=== PATIENT | male | born 1960 | race Caucasian/White ===

== ENCOUNTER → 2021-02-05 15:21 | Outpatient (CLI) | payer OTHER, SELFPAY ==
[2021-02-05 16:15] LABS: BUN Creatinine Ratio 14.3 (6-22); Blood Urea Nitrogen 21 mg/dL (9-20); Calcium 10.1 mg/dL (8.4-10.2); Carbon Dioxide 22 mmol/L (22-32); Chloride 97 mmol/L (98-107); Estimated Glomerular Filt Rate 49.2 mL/min (>60); Glucose 423 mg/dL (70-100); HEMOLYSIS < 15 (0-50); Sodium 134 mmol/L (137-145)
[2021-02-05 16:43] LABS: Prostate Specific Antigen 0.985 ng/mL (0.10-4.00)
== END ==
PROVIDERS: Family Provider Family Medicine; Referring Provider Specialist; Visit Provider Specialist
DX: N40.0 Benign prostatic hyperplasia without lower urinary tract symptoms (principal); Z80.42 Family history of malignant neoplasm of prostate; Z01.812 Encounter for preprocedural laboratory examination
CPT/HCPCS: 36415; 80048; 84153

== ENCOUNTER 2021-02-10 13:01 | Day surgery (SDC) | payer OTHER, SELFPAY ==
--- NOTE | 2021-02-10 | PATH_ITS ---
[facility] Accession Number: [id number] . 01 Material submitted: . PART A: colon - ASCENDING COLON POLYP PART B: colon - DESCENDING COLON POLYP . 01 Clinical history: . DX COLONOSCOPY . 02 Diagnosis: A. Ascending Colon Polyp: Tubular adenoma. . B. Descending Colon Polyp: Tubular adenoma. MRV 02/12/2021 1017 Local . 02 Electronically signed: . Mily Kramer MD, Pathologist NPI- [id number] . 01 Gross description: . Part A: ASCENDING COLON POLYP: Received in formalin is 1 fragment(s) of mena, soft tissue measuring 0.1 x 0.1 x 0.1 cm submitted entirely in 1 cassette(s) Part B: DESCENDING COLON POLYP: Received in formalin is 1 fragment(s) of mena, soft tissue measuring 0.3 x 0.3 x 0.3 cm submitted entirely in 1 cassette(s) /QBJ 02/11/2021 0722 Local . 02 Pathologist provided ICD-10: Z86.010, K63.5 . 02 CPT . 508329, [id number] Performed at: 01 [facility] [address], [place], [place] [id number] MD Irineo Deshpande MD Phone: [phone] Performed at: 02 [facility] [address] [place], [place] [id number] MD Kanwal Patel MD Phone: [phone]
[2021-02-10 14:04] VITALS: BP 155/104; PULSE 89; RESP 16; TEMP 36.3; O2SAT 100; BMI 24.6
[2021-02-10 14:08] LABS: COVID19 -Nasal RAPID Negative (Negative)
[2021-02-10] MEDS: SODIUM CHLORIDE 0.9% 1,000 ML 84 ML IV (14:16)
[2021-02-10] MEDS: INSULIN REGULAR 100 UNIT/ML 3 ML VIAL SUBCUT (14:37)
--- NOTE | 2021-02-10 14:53 | P.HP_ITS ---
History of Present Illness History of Present Illness Date Patient Seen: 02/10/21 Time Patient Seen: 14:53 Chief complaint: DX COLONOSCOPY Narrative: Personal history of colon polyps. Patient History Medical History Benign essential hypertension BPH loc w/o ur obs/LUTS Cholelithiases CKD (chronic kidney disease) Diabetes Erectile dysfunction associated with type 2 diabetes mellitus Family history of malignant neoplasm Family history of prostate cancer in father Myopia Ocular hypertension HAVEN (obstructive sleep apnea) Presbyopia Regular astigmatism Family & Social History Social History: household members spouse Tobacco & Substance use: Smoking Status Never smoker alcohol intake current alcohol intake frequency 0-2 drinks per day Substance Use Type does not use Meds Home Medications and Allergies Home Medications Medication Instructions Recorded Confirmed Type amlodipine 5 mg tablet (Norvasc) 5 mg PO QDAY #0 07/21/16 02/10/21 History aspirin 81 mg tablet,delayed 81 mg PO BID #0 07/21/16 02/10/21 History release atorvastatin 20 mg tablet (Lipitor) 20 mg PO HS #0 07/21/16 02/10/21 History losartan 100 mg tablet (Cozaar) 100 mg PO DAILY #0 tab 01/01/21 02/10/21 History Allergies Allergy/AdvReac Type Severity Reaction Status Date / Time No Known Allergies Allergy Uncoded 01/01/21 09:19 Review of Systems Review of Systems ROS: Yes All systems reviewed with the patient and are negative except as otherwise documented Exam Vital Signs (past 8 hours): - 02/10/21 14:04 Temperature 97.4 F L Pulse Rate 89 Respiratory Rate 16 Blood Pressure 155/104 H Pulse Oximetry 100 Oxygen Delivery Method Room Air Const General: cooperative and comfortable Orientation: alert [facility] Head: normocephalic Ears: external ears normal Nose: external nose normal Face and sinus: normal facial exam Mouth: oral mucosae normal Eyes General: appearance normal, both eyes and all related structures Neck Neck: normal visual inspection Chest Chest: normal inspection of the chest Resp Effort & Inspection: normal respiratory effort Auscultation: clear to auscultation bilaterally Cardio Rate: regular rate Rhythm: regular rhythm Heart Sounds: no murmurs GI Inspection: normal to inspection Palpation: soft and No tender Auscultation: normal bowel sounds Skin General: no rashes or lesions noted and No jaundice Neuro General: patient alert and moves all extremities Cognition: normal cognition Speech: speech normal Extrem General: no pedal edema Psych Appearance: grossly normal Objective Labs Labs: Laboratory Results - last 24 hr 02/10/21 13:09 SARS-CoV-2 (PCR) Negative Assessment & Plan Assessment & Plan narrative: Personal history of colon polyps. Colonoscopy is planned for today. Time Spent With Patient Critical Care time: I spent a total of [] minutes of critical care time on this patient's care today; this time is exclusive of procedural time.
--- NOTE | 2021-02-10 14:54 | PM.PREOP ---
Pre-operative Note COVID-19 COVID-19 status: Negative Result date/Date tested (Pos, Neg/Pending): 02/10/21 Interval Note History & Physical reviewed/Exam performed by Physician: Yes Changes to H&P: No H&P completed within 30 days and has changed as indicated here:: Today ASA Class (for procedural sedation): II
--- NOTE | 2021-02-10 15:21 | PM.OP.COLON ---
Operative Date/Time/Diagnoses Date of procedure: 02/10/21 Time of procedure: 15:21 Pre-op diagnosis: Personal history of colon polyps Post-op diagnosis: same Procedure & Clinicians Study performed: Colonoscopy with cold forceps polypectomy and hot snare polypectomy Same procedure as scheduled: Yes Indications: Personal history of colon polyps Surgeon: Raciel Ashraf Procedure Notes SCOAP/Timeout: Done Procedure in detail: After the risks and benefits were explained, written and verbal informed consent was obtained. The patient was brought into the procedure room and placed into the left lateral decubitus position. No sedation was applied. Patient requested a nonsedated exam. Digital rectal examination was accomplished. The scope was introduced into the patient and advanced under direct visualization to the cecum as identified by the appendiceal orifice and ileocecal valve. The scope was slowly withdrawn to carefully examine the mucosa for any defects or lesions. Comprehensive imaging was accomplished throughout the rectum including the dentate line. The colon was decompressed, the scope was then removed from the patient who tolerated the procedure well. Bowel prep adequate Pediatric colonoscope Scope withdrawal time: 11 minutes Sedation minutes: 18 Complications: none Impression: Patient had grade 2 internal nonbleeding nonthrombosed hemorrhoids. In the ascending colon there was a diminutive 4 mm polyp removed with cold forceps. In the descending colon there was an approximately 6 mm sessile polyp removed with hot snare. A no additional pathology was appreciated throughout. Endoscopic diagnosis 1. Grade 2 hemorrhoids 2. Colon polyps Post-procedure Recommendations: Colonoscopy in 5 years Plan for aftercare: 1. Await histopathology 2. Repeat colonoscopy 5 years. Disposition: PACU
[2021-02-10 15:22] VITALS: BP 154/90; PULSE 77; RESP 14; TEMP 36.1; O2SAT 99
[2021-02-10 15:25] VITALS: BP 157/91; PULSE 80; RESP 13; O2SAT 99
[2021-02-10 15:30] VITALS: BP 161/94; PULSE 75; RESP 16; O2SAT 99
[2021-02-10 15:35] VITALS: BP 140/97; PULSE 75; RESP 11; O2SAT 99
[2021-02-10 15:40] VITALS: BP 147/91; PULSE 80; RESP 17; TEMP 36.4; O2SAT 99
== END 2021-02-10 15:55 | disposition home or self-care (01) ==
PROVIDERS: Family Provider Family Medicine; Referring Provider Internal Medicine Gastroenterology; Visit Provider Internal Medicine Gastroenterology
PROC: 0DJD8ZZ Inspection of Lower Intestinal Tract, Via Natural or Artificial Opening Endoscopic (ICD-10-PCS; CPT 45378; principal; 2021-02-10 15:00)
DX: Z12.11 Encounter for screening for malignant neoplasm of colon (principal); Z86.010 Personal history of colon polyps; K64.1 Second degree hemorrhoids; Z20.822 Contact with and (suspected) exposure to COVID-19; D12.2 Benign neoplasm of ascending colon; D12.4 Benign neoplasm of descending colon
CPT/HCPCS: 45385; 45380; 82962; 87635

== ENCOUNTER → 2021-02-11 09:31 | Outpatient (CLI) | payer OTHER, SELFPAY ==
--- NOTE | 2021-02-11 09:32 | DI.NM.S_ITS ---
PROCEDURE: NM RENAL FUNCTION W LASIX RADIOPHARMACEUTICAL: 10 mCi Tc-99m MAG3 IV and 40 mg furosemide IV. INDICATIONS: CKD TECHNIQUE: The patient was hydrated orally before the examination was begun. After intravenous administration of Tc-99m MAG3, posterior abdominal radionuclide angiogram and sequential (1 minute each frame) renal images were obtained. A time-activity curve for each kidney was generated and analyzed. To evaluate for obstruction, the patient was given 40 mg furosemide via slow intravenous injection after the start of the examination. Sequential images were obtained for up to an additional 20 minutes. COMPARISON: [facility], MR, ABDOMEN WITHOUT CONTRAST, 06/15/2016, 12:31. [facility], [place], US RETROPERITONEAL, 10/15/2020, 12:19. [facility], [place], CT KIDNEY W / WO CONTRAST, 11/05/2020, 13:55. FINDINGS: Perfusion: There is normal vascular flow to both kidneys. Morphology: Both kidneys are normal in size and shape. The right renal collecting system is mildly dilated. No dilated left renal collecting system. The ureters and bladder fill with tracer, and appear normal. Function: Both kidneys demonstrate normal cortical tracer uptake and excretion. The right kidney contributes 48.2% of total renal function. The left kidney contributes 51.8% of total renal function. Lasix stimulation: After diuretic administration, there is prompt clearance of tracer activity from the renal collecting of the left kidney. There is delayed clearance of tracer activity from the right renal collecting system. The half-time of emptying of tracer activity from the right pelvicaliceal system is >20 minutes. The half-time of emptying from the left pelvicaliceal system is 5 minutes. Normal emptying half-times are less than 10 minutes; borderline ranges are from 10 to 20 minutes. IMPRESSION: 1. Mildly dilated right renal pelvis with normal caliber of right ureter. There is prolonged delayed clearance of activity from the right kidney with prolonged T1/2, consistent with right UPJ obstruction. 2. Normal left renal function. 3. The right kidney contributes 48.2% of total renal function; the left kidney contributes 51.8% of total renal function. Dictated by: Gogo Bronson M.D. on 02/11/2021 at 13:46 Approved by: Gogo Bronson M.D. on 02/11/2021 at 13:59
== END ==
PROVIDERS: Family Provider Family Medicine; PCP Family Medicine; Referring Provider Specialist; Visit Provider Specialist
DX: N18.9 Chronic kidney disease, unspecified (principal)
CPT/HCPCS: 78708; A9562

== ENCOUNTER → 2021-03-25 10:58 | Outpatient (CLI) | payer OTHER, SELFPAY ==
[2021-03-25 12:07] LABS: COVID19 -Nasal RAPID Negative (Negative)
== END ==
PROVIDERS: Family Provider Family Medicine; PCP Family Medicine; Visit Provider Specialist
DX: N13.5 Crossing vessel and stricture of ureter without hydronephrosis (principal); N18.9 Chronic kidney disease, unspecified; Z20.822 Contact with and (suspected) exposure to COVID-19; Z80.42 Family history of malignant neoplasm of prostate
CPT/HCPCS: 81002; 87635; 99215

== ENCOUNTER 2021-03-27 06:31 | Day surgery (SDC) | payer OTHER, SELFPAY ==
[2021-03-26 08:20] VITALS: BMI 25.4
[2021-03-27] VITALS (18 sets, daily range): BP systolic 118–150; BP diastolic 70–94; PULSE 58–104; RESP 15–20; TEMP 36.1–37.3; O2SAT 89–98; BMI 25.4
--- NOTE | 2021-03-27 | DI.RAD.S_ITS ---
PROCEDURE: XR ABDOMEN 1V INDICATIONS: RIGHT RETROGRADE TECHNIQUE: 5 intraoperative fluoroscopic of the abdomen acquired. COMPARISON: None. FINDINGS: Intraoperative fluoroscopic images of abdomen shows moderately distended right renal collecting system. No gross intraluminal filling defect is identified. There is subsequent placement of right-sided ureteral stent under fluoro guidance. IMPRESSION: Moderate right-sided hydronephrosis with subsequent right sided ureteral stent placement. Dictated by: Oscar Cohen M.D. on 03/27/2021 at 9:53 Approved by: Oscar Cohen M.D. on 03/27/2021 at 9:54
--- NOTE | 2021-03-27 07:17 | SUR.OPER ---
Lithotomy on padded OR bed, head on pillow, arms secured on padded arm boards at <90 degrees abduction. Legs secured in padded yellow fins stirrups.
[2021-03-27] MEDS: LACTATED RINGERS 1,000 ML 42 ML IV (07:34)
--- NOTE | 2021-03-27 07:40 | PM.PREOP ---
Pre-operative Note Interval Note History & Physical reviewed/Exam performed by Physician: Yes Changes to H&P: No
[2021-03-27] MEDS: CEFAZOLIN 2 GM/20 ML SYRINGE IV (08:02)
[2021-03-27] MEDS: IOPAMIDOL 15 ML VIAL INJ (08:11)
[2021-03-27] MEDS: BELLADONNA/OPIUM SUPPOSITORIES 1 EACH PR ×2 (08:26→12:25)
--- NOTE | 2021-03-27 08:43 | PM.OP.1 ---
Operative Date/Time/Diagnoses Date of procedure: 03/27/21 Time of procedure: 08:43 Pre-op diagnosis: Right ureteropelvic junction obstruction Post-op diagnosis: same Procedure & Clinicians Procedure: 1. Cystoscopy/right retrograde pyelogram. 2. Cystoscopy/dilation right ureteropelvic junction obstruction (18 Spanish balloon dilating catheter). 3. Cystoscopy/placement right ureteral stent (8 Spanish by 22-32 cm multi-length). Same procedure as scheduled: Yes Indications: 1. Right ureteropelvic junction obstruction. 2. CKD. Surgeon: Steve Swan Click Yes if Unassisted: Yes Anesthesia Type: General Operative Notes Findings: 1. Urethra-normal caliber without annular stricture or lesion. 2. External sphincter coapted with normal overlying urothelium. 3. Mzfxkqrd-1-5.5 cm length with mild lateral lobe hyperplasia. 4. Bladder-trace trabeculation. Normal ureteral orifices bilaterally. No stone, tumor, foreign body visualized. 5. Right collecting system-moderate to severe right hydronephrosis tapering in a teardrop fashion inferiorly and transitioning to a normal caliber ureter. Closure Type: not applicable Specimen(s): none sent Applied: other (Eight Spanish by 22-32 cm multi-length stent) Estimated Blood Loss (mL): 0 Blood products transfused: none Procedure in detail: The patient was positioned supine and was administered general anesthesia. He was then repositioned semi lithotomy and the lower abdomen, genitalia, and groin were then prepped and draped in sterile fashion. The 22 Spanish panendoscope was then passed lower urinary tract with the findings as described above. A 4 Spanish whistle-tip catheter was then advanced through the working channel of the scope and advanced of the right collecting system under direct and fluoroscopic guidance. Retrograde pyelography was then performed with the findings as described above. Several intraoperative images were saved. The whistle-tip catheter was then removed and a 0.35 hybrid guidewire was advanced in the right collecting system under direct and fluoroscopic guidance. Over this an 18 Spanish by 6 cm balloon dilating catheter was advanced proximally under direct and fluoroscopic guidance. The balloon was positioned across the right ureteropelvic junction and was then inflated to 18 atmospheres and held in position for 5 minutes. The balloon was then deflated and the balloon dilating catheter was backloaded off the hybrid guidewire. Next, an 8 Spanish by 22-32 cm multi-length stent was selected. This was advanced over the hybrid guidewire under direct and fluoroscopic guidance and positioned appropriately in the right collecting system. NO RETRIEVAL LINE WAS LEFT ATTACHED. The bladder was then drained completely and all instrumentation was then removed. The patient was then repositioned supine, was awakened, and was transferred [place] a [place] for transport to PACU in stable condition. Complications: none Post-operative Condition: stable Disposition: PACU Plan for aftercare: Discharge home.
--- NOTE | 2021-03-27 09:24 | SUR.PHASEII ---
Up to BR to void, steady when up.
[2021-03-27] MEDS: ONDANSETRON 4 MG/2 ML INJ IV (09:37)
[2021-03-27] MEDS: OXYCODONE/ACETAMINOPHEN 5/325 TABLET 1 TAB PO ×2 (09:51→11:31)
[2021-03-27] MEDS: fentaNYL 100 MCG/2 ML INJ IV (10:19)
--- NOTE | 2021-03-27 11:41 | SUR.PHASEII ---
Pt c/o nausea, medicated with ondansetron, nausea resoleved, then 7/10 pain, placed on monitor and medicated with fentanyl, pt slept awoke, was going to get [id number], then started to dry heave and Dr. Segura notified. Scop patch ordered.
[2021-03-27] MEDS: SCOPOLAMINE 1 PATCH TOP (11:47)
[2021-03-27] MEDS: HYDROMORPHONE 2 MG INJ IV (11:56)
--- NOTE | 2021-03-27 12:11 | SUR.PHASEII ---
Dr Swan called about pain still after Dilaudid given, B&)
--- NOTE | 2021-03-27 12:12 | SUR.PHASEII ---
Dilaudid given, pain still high, Dr Swan called about pain B& O ordered.
--- NOTE | 2021-03-27 14:05 | SUR.PHASEII ---
B&O given, pt slept, got up voided in bathroom again nauseated, 9/10 pain, not wanting to go home, Dr. Swan ordered oconnell to be placed and 1gram IV Tylenol, plan expalined to pt, pt stated he did not want oconnell pain down to 4/10. Pt stated he would rather go home. Dr. Swan called, informed of pt request, he was ok with pt going home, pt left unit in stable condition.
== END 2021-03-27 13:30 | disposition home or self-care (01) ==
PROVIDERS: Family Provider Family Medicine; PCP Family Medicine; Referring Provider Specialist; Visit Provider Specialist
PROC: (CPT 52345; principal; 2021-03-27 07:45)
DX: N13.5 Crossing vessel and stricture of ureter without hydronephrosis (principal); N18.9 Chronic kidney disease, unspecified; N40.1 Benign prostatic hyperplasia with lower urinary tract symptoms; N13.8 Other obstructive and reflux uropathy; N52.1 Erectile dysfunction due to diseases classified elsewhere; E11.69 Type 2 diabetes mellitus with other specified complication; Z79.84 Long term (current) use of oral hypoglycemic drugs
CPT/HCPCS: 52345; 52332; 74018; 76000; 82962; J0690; J1170; J2250; J2405; J2704; J3010

== ENCOUNTER → 2021-05-27 15:55 | Outpatient (CLI) | payer OTHER, SELFPAY ==
[2021-05-27 16:44] LABS: BUN Creatinine Ratio 13.4 (6-22); Blood Urea Nitrogen 19 mg/dL (9-20); Calcium 10.7 mg/dL (8.4-10.2); Carbon Dioxide 22 mmol/L (22-32); Chloride 101 mmol/L (98-107); Estimated Glomerular Filt Rate 51.2 mL/min (>60); Glucose 313 mg/dL (70-100); HEMOLYSIS < 15 (0-50); Sodium 135 mmol/L (137-145)
[2021-05-27 16:46] LABS: Potassium 5.4 mmol/L (3.4-5.1)
== END ==
PROVIDERS: Family Provider Family Medicine; PCP Family Medicine; Referring Provider Specialist; Visit Provider Specialist
DX: N40.0 Benign prostatic hyperplasia without lower urinary tract symptoms (principal)
CPT/HCPCS: 36415; 80048

== ENCOUNTER → 2021-06-22 13:37 | Outpatient (CLI) | payer OTHER, SELFPAY ==
--- NOTE | 2021-06-22 | DI.NM.S_ITS ---
PROCEDURE: MS RENAL FUNCTION W LASIX RADIOPHARMACEUTICAL: 10 mCi Tc-99m MAG3 IV and 40 mg furosemide IV. INDICATIONS: Chronic kidney disease, unspecified TECHNIQUE: The patient was hydrated orally before the examination was begun. After intravenous administration of Tc-99m MAG3, posterior abdominal radionuclide angiogram and sequential (1 minute each frame) renal images were obtained. A time-activity curve for each kidney was generated and analyzed. To evaluate for obstruction, the patient was given 40 mg furosemide via slow intravenous injection after the start of the examination. Sequential images were obtained for up to an additional 20 minutes. COMPARISON: [place], [place], MS RENAL FUNCTION W LASIX, 02/11/2021, 10:12. FINDINGS: Perfusion: There is normal vascular flow to both kidneys. Morphology: Both kidneys are normal in size and shape. No dilated collecting systems are seen. The ureters and bladder fill with tracer, and appear normal. Function: Delayed radiotracer uptake within the bilateral kidneys is present, with a time to peak of 6 minutes on the left and 18.5 minutes on the right. The right kidney contributes 52 % of total renal function. The left kidney contributes 48% of total renal function. Lasix stimulation: After diuretic administration, there is delayed clearance of tracer activity from the renal collecting systems in both kidneys. The half-time of emptying of tracer activity from the right pelvicaliceal system is 21 minutes. The half-time of emptying from the left pelvicaliceal system is 26 minutes. Normal emptying half-times are less than 10 minutes; borderline ranges are from 10 to 20 minutes. IMPRESSION: 1. Diminished renal perfusion bilaterally, right greater than left. 2. Delayed bilateral renal emptying. Dictated by: Prakash Saavedra M.D. on 06/22/2021 at 15:49 Approved by: Prakash Saavedra M.D. on 06/22/2021 at 15:51
== END ==
PROVIDERS: Family Provider Family Medicine; PCP Family Medicine; Referring Provider Specialist; Visit Provider Specialist
DX: N18.9 Chronic kidney disease, unspecified (principal); N13.5 Crossing vessel and stricture of ureter without hydronephrosis; N40.0 Benign prostatic hyperplasia without lower urinary tract symptoms
CPT/HCPCS: 78708; A9562

== ENCOUNTER → 2021-09-21 13:39 | Outpatient (CLI) | payer OTHER, SELFPAY ==
[2021-09-21 15:27] LABS: Prostate Specific Antigen 0.657 ng/mL (0.10-4.00)
== END ==
PROVIDERS: Family Provider Family Medicine; PCP Family Medicine; Referring Provider Specialist; Visit Provider Specialist
DX: R97.20 Elevated prostate specific antigen [PSA] (principal)
CPT/HCPCS: 36415; 84153

== ENCOUNTER → 2021-09-23 15:52 | Outpatient (CLI) | payer OTHER, SELFPAY | PROVIDERS: Family Provider Family Medicine; PCP Family Medicine; Visit Provider Specialist | DX: R30.0 Dysuria (principal); N13.5 Crossing vessel and stricture of ureter without hydronephrosis; N18.9 Chronic kidney disease, unspecified; N40.0 Benign prostatic hyperplasia without lower urinary tract symptoms; E11.69 Type 2 diabetes mellitus with other specified complication; N52.1 Erectile dysfunction due to diseases classified elsewhere; Z80.42 Family history of malignant neoplasm of prostate | CPT/HCPCS: 81002; 87086; 99215 ==

== ENCOUNTER 2025-02-01 19:45 | Inpatient (IN) | payer OTHER, SELFPAY ==
[2025-02-01] VITALS (10 sets, daily range): BP systolic 94–112; BP diastolic 58–70; PULSE 106–117; RESP 15–21; TEMP 36.9; O2SAT 96–100; BMI 23.6
--- NOTE | 2025-02-01 19:51 | EKG_ITS ---
[address] [address] Test Date: 2025-02-01 Pat Name: Girma Pena Department: Room: Gender: Male [employer] Delivery Driver: GEMMA : [id number] Requested By: Order Number: [id number] Reading MD: Edwardo Viramontes MD Measurements Intervals [place] Rate: 114 P: 46 WY: 128 QRS: 0 QRSD: 82 T: 76 QT: 332 QTc: 457 Interpretive Statements Sinus tachycardia Nonspecific T wave abnormality Electronically Signed On 02-02-2025 7:25:45 PDT by Edwardo Viramontes MD
--- NOTE | 2025-02-01 20:15 | DI.RAD.S_ITS ---
PROCEDURE: XR CHEST 1V INDICATIONS: suspected sepsis TECHNIQUE: One view of the chest was acquired. COMPARISON: None. FINDINGS: Surgical changes and devices: None. Lungs and pleura: Lungs are clear. No pleural effusions or pneumothorax. Mediastinum: Mediastinal contours appear normal. Heart size is normal. Bones and chest wall: No suspicious bony lesions. Overlying soft tissues appear unremarkable. IMPRESSION: No acute cardiopulmonary abnormality is seen. Dictated by: Ash Preston M.D. on 02/01/2025 at 22:00 Approved by: Ash Preston M.D. on 02/01/2025 at 22:00
[2025-02-01 20:25] LABS: INR 1.1 (0.9-1.3); Prothrombin Time 12.8 SECONDS (9.4-12.5)
[2025-02-01 20:28] LABS: PTT Partial Thromboplastin Tim 22 SECONDS (25.1-36.5)
[2025-02-01 20:31] LABS: Alanine Aminotransferase 262 IU/L (<50); Albumin 4.2 g/dL (3.5-5.0); Albumin Globulin Ratio 1.8 (1.0-2.8); Alkaline Phosphatase 80 U/L (38-126); Blood Urea Nitrogen 77 mg/dL (9-20); Calcium 9.1 mg/dL (8.4-10.2); Carbon Dioxide 21 mmol/L (22-32); Chloride 90 mmol/L (98-107); Estimated Glomerular Filt Rate 34 mL/min (>60); Globulin 2.4 g/dL (1.7-4.1); Glucose 299 mg/dL (70-99); HEMOLYSIS 17 (0-50); Lipase 149 U/L (23-300); Potassium 4.2 mmol/L (3.4-5.1); Sodium 130 mmol/L (137-145); Total Protein 6.6 g/dL (6.3-8.2)
[2025-02-01 20:34] LABS: Lactate (Lactic Acid) 8.9 mmol/L (0.7-2.1)
--- NOTE | 2025-02-01 20:34 | ED.WEAKNESS ---
HPI - Weakness <Anne Flannery, - Last Filed: 02/05/25 10:38> General Chief complaint: Weakness Stated complaint: gen weakness Time Seen by Provider: 02/01/25 20:30 Source: patient and EMS Mode of arrival: EMS History of Present Illness HPI Narrative: 64-year-old male history of diabetes on insulin, CKD, hypertension who presents with complaint of lightheadedness near-syncope when he is standing. Patient states he had a dental extraction and graft yesterday with a dental surgeon he notes he did have a procedural sedation with IV medication he does not know if he was intubated but does not recall the procedure. Was started on amoxicillin today as part of the plan he states no fevers that he appreciates he has been maybe slightly warm he denies any chills. He states no increasing pain swelling or discharge from the site. He states no chest pain he has noted a little bit of shortness of breath particularly when he exerts himself. He notes he gets really lightheaded and feels like he is going to pass out when he walks or stands. He did not have some nausea and vomiting earlier this afternoon. He states he has a little bit of mild abdominal discomfort but none persistent he denies any back or flank pain. He denies any diarrhea or constipation. He denies any dysuria urgency or frequency. Denies any rash or skin changes. Patient states he is on 2000 mg of metformin, Lantus 14 units daily, losartan 100 mg daily, amlodipine 2.5 mg daily. He denies any anticoagulation. Take has a history of a right ureteral stent that has since been removed for an obstruction, he has had right eye cataract surgery. He denies any drug allergies. No tobacco, has 4 alcoholic drinks daily no recreational drugs. Primary care physician is Dr. Rand through the [place]. Related Data Home Medications ?Medication ?Instructions ?Recorded ?Confirmed aspirin 81 mg tablet,delayed 81 mg PO BID ##0 07/21/16 02/02/25 release atorvastatin 20 mg tablet (Lipitor) 20 mg PO HS ##0 07/21/16 02/02/25 losartan 100 mg tablet (Cozaar) 100 mg PO DAILY #0 tabs 01/01/21 02/02/25 meloxicam 15 mg tablet 15 mg PO .prn 09/23/21 02/02/25 metformin 1,000 mg tablet 2,000 mg PO DAILY 09/23/21 02/02/25 insulin glargine 100 unit/mL (3 14 unit SUBCUT DAILY 02/02/25 02/02/25 mL) subcutaneous pen (Lantus Solostar U-100 Insulin) Previous Rx's ?Medication ?Instructions ?Recorded sildenafil 25 mg tablet 25 mg PO DAILY PRN sexual activity 10/26/21 #30 tabs Allergies Allergy/AdvReac Type Severity Reaction Status Date / Time No Known Drug Allergies Allergy Verified 02/01/25 19:51 Review of Systems <Anne Flannery DO - Last Filed: 02/05/25 10:38> Review of Systems ROS Unobtainable: All systems reviewed & are unremarkable except as noted in HPI and below Patient History <Anne Flannery DO - Last Filed: 02/05/25 10:38> Medical History Benign essential hypertension BPH loc w/o ur obs/LUTS Cholelithiases Cirrhosis, alcoholic CKD (chronic kidney disease) Diabetes Erectile dysfunction associated with type 2 diabetes mellitus Esophageal varices Family history of malignant neoplasm Family history of prostate cancer in father Myopia Obstruction of right ureteropelvic junction (UPJ) Ocular hypertension HAVEN (obstructive sleep apnea) Presbyopia Regular astigmatism Surgical History Hx of colonoscopy (02/10/21) Family History Mother Diabetes mellitus Father Diabetes mellitus Brother Diabetes mellitus Pancreatic cancer Sister Diabetes mellitus Pancreatic cancer Social History marital status: household members: spouse leisure activities: exercise Smoking Status: Never smoker alcohol intake: current caffeine: Yes Smoking Status: Never smoker alcohol intake frequency: 0-2 drinks per day Alcohol type: wine Exam <Anne Flannery DO - Last Filed: 02/05/25 10:38> Narrative Exam Narrative: GEN: well nourished, well appearing male, alert and oriented x 3, patient appears to be in mild distress. HEENT: Atraumatic, pupils are equal round reactive to light, extraocular movements are intact, nares are clear, there is no conjunctival pallor. Throat is clear without any exudates, erythema, tonsillar enlargement or uvular deviation HEART: Tachycardic but Regular rate and rhythm without murmur, clicks, rubs. Pulses are equal in upper and lower extremities, no JVD. No edema bilateral upper lower extremities. LUNGS:Lungs clear to auscultation, no wheezes, rales, crackles, chest moves symmetrically, no tachypnea accessory muscle use speaks in full sentences. ABD:bowel sounds normal, soft, non-tender, no guarding, rebound, rigidity, no masses noted, no hepatosplenomegaly :No CVA tenderness MSCL: Non-tender, no muscle atrophy, muscles strength 5/5 upper and lower extremities, full range of motion. NEURO:CN 2-12 intact, sensation normal SKIN: No rash, erythema, no petechiae Initial Vital Signs Initial Vital Signs: Vital Signs Temperature 98.4 F 02/01/25 19:51 Pulse Rate 117 H 02/01/25 19:51 Respiratory Rate 18 02/01/25 19:51 Blood Pressure 103/69 02/01/25 19:51 Pulse Oximetry 96 02/01/25 19:51 Oxygen Delivery Method Room Air 02/01/25 19:51 <Ray Loomis MD - Last Filed: 02/02/25 03:27> Initial Vital Signs Initial Vital Signs: Vital Signs Temperature 98.4 F 02/01/25 19:51 Pulse Rate 117 H 02/01/25 19:51 Respiratory Rate 18 02/01/25 19:51 Blood Pressure 103/69 02/01/25 19:51 Pulse Oximetry 96 02/01/25 19:51 Oxygen Delivery Method Room Air 02/01/25 19:51 Course <Anne Flannery DO - Last Filed: 02/05/25 10:38> Orders Ordered: Discontinued Medications Aspirin (Aspirin Ec 81 Mg Tablet) 81 mg PO BID [facility] Atorvastatin Calcium (Atorvastatin 20 Mg Tablet) 20 mg PO BEDTIME [facility] Last Admin: 02/03/25 20:50 Dose: Not Given Documented By: Admin: 02/02/25 21:08 Dose: Not Given Documented By: Admin: 02/02/25 05:53 Dose: Not Given Documented By: Enoxaparin Sodium (Enoxaparin 40 Mg/0.4 Ml Syringe) 40 mg SUBCUT DAILY [facility] Sodium Chloride (Normal Saline 0.9%) 1,000 mls @ 1,000 mls/hr IV BOLUS ONE Stop: 02/01/25 21:14 Last Admin: 02/01/25 21:28 Dose: Not Given Documented By: ESTRELLITA Vancomycin HCl 1,750 mg/ (Sodium Chloride) 500 mls @ 250 mls/hr IV NOW ONE Stop: 02/01/25 20:48 Last Admin: 02/01/25 21:28 Dose: Not Given Documented By: ESTRELLITA Ceftriaxone Sodium 2,000 mg/ (Sodium Chloride) 100 mls @ 200 mls/hr IV NOW ONE Stop: 02/01/25 20:48 Last Infusion: 02/01/25 21:57 Dose: Infused Documented By: Admin: 02/01/25 20:58 Dose: 200 mls/hr Documented By: ESTRELLITA Sodium Chloride (Normal Saline 0.9%) 2,109.21 mls @ 703.07 mls/hr 30 ml/kg infuse over 3 hr (2109.21 ml) IV NOW ONE Stop: 02/01/25 23:46 Last Infusion: 02/01/25 23:55 Dose: Infused Documented By: Admin: 02/01/25 20:57 Dose: 703.07 mls/hr Documented By: ESTRELLITA Vancomycin HCl 1,000 mg/ (Sodium Chloride) 100 mls @ 100 mls/hr IV NOW ONE Stop: 02/01/25 21:21 Last Admin: 02/01/25 22:11 Dose: Not Given Documented By: ESTRELLITA Vancomycin HCl 750 mg/ Sodium (Chloride) 100 mls @ 100 mls/hr IV NOW ONE Stop: 02/01/25 21:21 Last Admin: 02/01/25 22:11 Dose: Not Given Documented By: ESTRELLITA Vancomycin HCl/Dextrose (Vancomycin) 1,750 mg in 350 mls @ 200 mls/hr IV NOW ONE Stop: 02/01/25 23:44 Last Infusion: 02/01/25 23:56 Dose: Infused Documented By: Admin: 02/01/25 21:57 Dose: 200 mls/hr Documented By: ESTRELLITA Piperacillin Sod/Tazobactam (Sod 4.5 gm/ Sodium Chloride) 100 mls @ 200 mls/hr IV NOW ONE Stop: 02/02/25 00:35 Last Infusion: 02/02/25 02:08 Dose: Infused Documented By: Admin: 02/02/25 01:38 Dose: 200 mls/hr Documented By: PETRONA Lactated Ringer's (Lactated Ringers) 1,000 mls @ 1,000 mls/hr IV BOLUS ONE Stop: 02/02/25 01:37 Last Infusion: 02/02/25 02:38 Dose: Infused Documented By: Admin: 02/02/25 01:35 Dose: 1,000 mls/hr Documented By: PETRONA Sodium Chloride (Normal Saline 0.9%) 1,000 mls @ 100 mls/hr IV CONT [facility] Last Infusion: 02/04/25 11:25 Dose: Infused Documented By: Admin: 02/03/25 21:42 Dose: 100 mls/hr Documented By: Infusion: 02/03/25 21:04 Dose: Infused Documented By: Admin: 02/03/25 11:04 Dose: 100 mls/hr Documented By: Infusion: 02/03/25 08:15 Dose: Infused Documented By: Admin: 02/02/25 22:15 Dose: 100 mls/hr Documented By: Infusion: 02/02/25 22:14 Dose: Infused Documented By: Admin: 02/02/25 12:14 Dose: 100 mls/hr Documented By: Infusion: 02/02/25 12:14 Dose: Infused Documented By: Admin: 02/02/25 02:39 Dose: 100 mls/hr Documented By: PETRONA Piperacillin Sod/Tazobactam (Sod 3.375 gm/ Sodium Chloride) 100 mls @ 25 mls/hr IV Q8H [facility] Last Admin: 02/04/25 11:24 Dose: Not Given Documented By: Infusion: 02/04/25 03:38 Dose: Infused Documented By: Admin: 02/03/25 23:38 Dose: 25 mls/hr Documented By: Infusion: 02/03/25 20:23 Dose: Infused Documented By: Admin: 02/03/25 16:23 Dose: 25 mls/hr Documented By: Infusion: 02/03/25 12:41 Dose: Infused Documented By: Admin: 02/03/25 08:41 Dose: 25 mls/hr Documented By: Infusion: 02/03/25 04:08 Dose: Infused Documented By: Admin: 02/03/25 00:08 Dose: 25 mls/hr Documented By: Infusion: 02/02/25 20:20 Dose: Infused Documented By: Admin: 02/02/25 16:20 Dose: 25 mls/hr Documented By: Infusion: 02/02/25 12:17 Dose: Infused Documented By: Admin: 02/02/25 07:55 Dose: 25 mls/hr Documented By: CATALINO Vancomycin HCl (Vancomycin) 1,000 mg in 200 mls @ 150 mls/hr IV Q24H [facility] Last Infusion: 02/02/25 22:39 Dose: Infused Documented By: Admin: 02/02/25 21:19 Dose: 150 mls/hr Documented By: KISHORE Vancomycin HCl/Dextrose (Vancomycin) 1,500 mg in 300 mls @ 200 mls/hr IV Q24H [facility] Last Admin: 02/03/25 14:13 Dose: Not Given Documented By: ROB Vancomycin HCl/Dextrose (Vancomycin) 1,500 mg in 300 mls @ 200 mls/hr IV Q24H [facility] Last Infusion: 02/03/25 14:13 Dose: Infused Documented By: Admin: 02/03/25 12:26 Dose: 200 mls/hr Documented By: ROB Insulin Glargine (Insulin Glargine 100 Unit/Ml 3ml Pen) 10 unit SUBCUT DAILY [facility] Insulin Glargine (Insulin Glargine 100 Unit/Ml 3ml Pen) 14 unit SUBCUT DAILY [facility] Last Admin: 02/03/25 08:40 Dose: 14 unit Documented By: ROB Co-signed By: CRISTI Admin: 02/02/25 11:31 Dose: 14 unit Documented By: CATALINO Co-signed By: Insulin Glargine (Insulin Glargine 100 Unit/Ml 3ml Pen) 17 unit SUBCUT DAILY [facility] Last Admin: 02/04/25 09:36 Dose: 17 unit Documented By: ROB Co-signed By: JENNIFER Insulin Human Lispro (Insulin Lispro 100 Unit/Ml 3ml Vial) 0 unit SUBCUT ACHS [facility]; Protocol Last Admin: 02/04/25 11:24 Dose: Not Given Documented By: Admin: 02/03/25 20:46 Dose: Not Given Documented By: Admin: 02/03/25 16:45 Dose: Not Given Documented By: [employer] [facility] Admin: 02/03/25 12:34 Dose: Not Given Documented By: [employer] [facility] Admin: 02/03/25 09:42 Dose: Not Given Documented By: [employer] [facility] Admin: 02/02/25 21:08 Dose: Not Given Documented By: Admin: 02/02/25 16:56 Dose: 8 unit Documented By: ESV Co-signed By: Naloxone HCl (Naloxone 0.4 Mg/Ml Vial) 0.2 mg IV Q2MIN PRN PRN Reason: Opiate Reversal Ondansetron HCl (Ondansetron 4 Mg/2 Ml Inj) 4 mg IV NOW PRN PRN Reason: Nausea And Vomiting Ondansetron HCl (Ondansetron 4 Mg Odt) 4 mg PO NOW PRN PRN Reason: Nausea And Vomiting Pantoprazole Sodium (Pantoprazole Dr 40 Mg Tablet) 40 mg PO 0700,2100 [facility] Last Admin: 02/04/25 06:28 Dose: 40 mg Documented By: Admin: 02/03/25 20:39 Dose: 40 mg Documented By: Admin: 02/03/25 08:39 Dose: Not Given Documented By: [employer] [facility] Admin: 02/02/25 21:07 Dose: Not Given Documented By: Admin: 02/02/25 11:26 Dose: 40 mg Documented By: CATALINO Propranolol HCl (Propranolol 10 Mg Tablet) 10 mg PO BID [facility] Last Admin: 02/04/25 09:36 Dose: 10 mg Documented By: [employer] [facility] [employer] [facility] Admin: 02/03/25 20:39 Dose: 10 mg Documented By: Admin: 02/03/25 08:41 Dose: 10 mg Documented By: [employer] [facility] Admin: 02/02/25 21:06 Dose: 10 mg Documented By: Admin: 02/02/25 11:26 Dose: 10 mg Documented By: CATALINO Vancomycin HCl (Vancomycin Per Pharmacy) 1 request MISC NOW PRN PRN Reason: severe sepsis Vancomycin HCl (Vancomycin Trough) 1 request MISC 1130 [facility] Stop: 02/05/25 11:31 Vancomycin HCl (Vancomycin Peak) 1 request MISC 1430 [facility] Stop: 02/05/25 14:31 Vital Signs Vital signs: Vital Signs - 8 hr 02/01/25 19:51 02/01/25 20:17 02/01/25 20:20 Temperature 98.4 F Pulse Rate 117 H 113 H Respiratory Rate 18 Blood Pressure 103/69 99/61 Pulse Oximetry 96 Oxygen Delivery Method Room Air 02/01/25 20:20 02/01/25 20:30 02/01/25 20:30 Temperature Pulse Rate 114 H 110 H Respiratory Rate 21 15 Blood Pressure 94/58 L Pulse Oximetry 99 99 Oxygen Delivery Method Room Air Room Air 02/01/25 21:00 02/01/25 21:00 02/01/25 21:34 Temperature Pulse Rate 111 H 112 H Respiratory Rate 21 Blood Pressure 112/70 Pulse Oximetry 99 Oxygen Delivery Method Room Air 02/01/25 22:00 02/01/25 22:30 02/01/25 23:00 Temperature Pulse Rate 108 H 107 H 107 H Respiratory Rate 15 16 16 Blood Pressure Pulse Oximetry 100 98 98 Oxygen Delivery Method Room Air 02/01/25 23:30 02/02/25 00:00 02/02/25 00:10 Temperature Pulse Rate 106 H 109 H 112 H Respiratory Rate 15 16 17 Blood Pressure Pulse Oximetry 98 99 100 Oxygen Delivery Method Room Air 02/02/25 00:10 02/02/25 00:30 02/02/25 00:30 Temperature Pulse Rate 108 H 108 H Respiratory Rate 16 16 Blood Pressure 126/60 Pulse Oximetry 98 98 Oxygen Delivery Method Room Air Room Air 02/02/25 00:30 Temperature Pulse Rate Respiratory Rate Blood Pressure 102/64 Pulse Oximetry Oxygen Delivery Method <Ray Loomis MD - Last Filed: 02/02/25 03:27> Orders Ordered: Discontinued Medications Aspirin (Aspirin Ec 81 Mg Tablet) 81 mg PO BID [facility] Atorvastatin Calcium (Atorvastatin 20 Mg Tablet) 20 mg PO BEDTIME [facility] Last Admin: 02/03/25 20:50 Dose: Not Given Documented By: Admin: 02/02/25 21:08 Dose: Not Given Documented By: Admin: 02/02/25 05:53 Dose: Not Given Documented By: Enoxaparin Sodium (Enoxaparin 40 Mg/0.4 Ml Syringe) 40 mg SUBCUT DAILY [facility] Sodium Chloride (Normal Saline 0.9%) 1,000 mls @ 1,000 mls/hr IV BOLUS ONE Stop: 02/01/25 21:14 Last Admin: 02/01/25 21:28 Dose: Not Given Documented By: LS Vancomycin HCl 1,750 mg/ (Sodium Chloride) 500 mls @ 250 mls/hr IV NOW ONE Stop: 02/01/25 20:48 Last Admin: 02/01/25 21:28 Dose: Not Given Documented By: ESTRELLITA Ceftriaxone Sodium 2,000 mg/ (Sodium Chloride) 100 mls @ 200 mls/hr IV NOW ONE Stop: 02/01/25 20:48 Last Infusion: 02/01/25 21:57 Dose: Infused Documented By: Admin: 02/01/25 20:58 Dose: 200 mls/hr Documented By: ESTRELLITA Sodium Chloride (Normal Saline 0.9%) 2,109.21 mls @ 703.07 mls/hr 30 ml/kg infuse over 3 hr (2109.21 ml) IV NOW ONE Stop: 02/01/25 23:46 Last Infusion: 02/01/25 23:55 Dose: Infused Documented By: Admin: 02/01/25 20:57 Dose: 703.07 mls/hr Documented By: ESTRELLITA Vancomycin HCl 1,000 mg/ (Sodium Chloride) 100 mls @ 100 mls/hr IV NOW ONE Stop: 02/01/25 21:21 Last Admin: 02/01/25 22:11 Dose: Not Given Documented By: ESTRELLITA Vancomycin HCl 750 mg/ Sodium (Chloride) 100 mls @ 100 mls/hr IV NOW ONE Stop: 02/01/25 21:21 Last Admin: 02/01/25 22:11 Dose: Not Given Documented By: ESTRELLITA Vancomycin HCl/Dextrose (Vancomycin) 1,750 mg in 350 mls @ 200 mls/hr IV NOW ONE Stop: 02/01/25 23:44 Last Infusion: 02/01/25 23:56 Dose: Infused Documented By: Admin: 02/01/25 21:57 Dose: 200 mls/hr Documented By: ESTRELLITA Piperacillin Sod/Tazobactam (Sod 4.5 gm/ Sodium Chloride) 100 mls @ 200 mls/hr IV NOW ONE Stop: 02/02/25 00:35 Last Infusion: 02/02/25 02:08 Dose: Infused Documented By: Admin: 02/02/25 01:38 Dose: 200 mls/hr Documented By: PETRONA Lactated Ringer's (Lactated Ringers) 1,000 mls @ 1,000 mls/hr IV BOLUS ONE Stop: 02/02/25 01:37 Last Infusion: 02/02/25 02:38 Dose: Infused Documented By: Admin: 02/02/25 01:35 Dose: 1,000 mls/hr Documented By: PETRONA Sodium Chloride (Normal Saline 0.9%) 1,000 mls @ 100 mls/hr IV CONT [facility] Last Infusion: 02/04/25 11:25 Dose: Infused Documented By: Admin: 02/03/25 21:42 Dose: 100 mls/hr Documented By: Infusion: 02/03/25 21:04 Dose: Infused Documented By: Admin: 02/03/25 11:04 Dose: 100 mls/hr Documented By: Infusion: 02/03/25 08:15 Dose: Infused Documented By: Admin: 02/02/25 22:15 Dose: 100 mls/hr Documented By: Infusion: 02/02/25 22:14 Dose: Infused Documented By: Admin: 02/02/25 12:14 Dose: 100 mls/hr Documented By: Infusion: 02/02/25 12:14 Dose: Infused Documented By: Admin: 02/02/25 02:39 Dose: 100 mls/hr Documented By: PETRONA Piperacillin Sod/Tazobactam (Sod 3.375 gm/ Sodium Chloride) 100 mls @ 25 mls/hr IV Q8H [facility] Last Admin: 02/04/25 11:24 Dose: Not Given Documented By: Infusion: 02/04/25 03:38 Dose: Infused Documented By: Admin: 02/03/25 23:38 Dose: 25 mls/hr Documented By: Infusion: 02/03/25 20:23 Dose: Infused Documented By: Admin: 02/03/25 16:23 Dose: 25 mls/hr Documented By: Infusion: 02/03/25 12:41 Dose: Infused Documented By: Admin: 02/03/25 08:41 Dose: 25 mls/hr Documented By: Infusion: 02/03/25 04:08 Dose: Infused Documented By: Admin: 02/03/25 00:08 Dose: 25 mls/hr Documented By: Infusion: 02/02/25 20:20 Dose: Infused Documented By: Admin: 02/02/25 16:20 Dose: 25 mls/hr Documented By: Infusion: 02/02/25 12:17 Dose: Infused Documented By: Admin: 02/02/25 07:55 Dose: 25 mls/hr Documented By: CATALINO Vancomycin HCl (Vancomycin) 1,000 mg in 200 mls @ 150 mls/hr IV Q24H [facility] Last Infusion: 02/02/25 22:39 Dose: Infused Documented By: Admin: 02/02/25 21:19 Dose: 150 mls/hr Documented By: KISHORE Vancomycin HCl/Dextrose (Vancomycin) 1,500 mg in 300 mls @ 200 mls/hr IV Q24H [facility] Last Admin: 02/03/25 14:13 Dose: Not Given Documented By: ROB Vancomycin HCl/Dextrose (Vancomycin) 1,500 mg in 300 mls @ 200 mls/hr IV Q24H [facility] Last Infusion: 02/03/25 14:13 Dose: Infused Documented By: Admin: 02/03/25 12:26 Dose: 200 mls/hr Documented By: ROB Insulin Glargine (Insulin Glargine 100 Unit/Ml 3ml Pen) 10 unit SUBCUT DAILY [facility] Insulin Glargine (Insulin Glargine 100 Unit/Ml 3ml Pen) 14 unit SUBCUT DAILY [facility] Last Admin: 02/03/25 08:40 Dose: 14 unit Documented By: ROB Co-signed By: CRISTI Admin: 02/02/25 11:31 Dose: 14 unit Documented By: CATALINO Co-signed By: Insulin Glargine (Insulin Glargine 100 Unit/Ml 3ml Pen) 17 unit SUBCUT DAILY [facility] Last Admin: 02/04/25 09:36 Dose: 17 unit Documented By: ROB Co-signed By: JENNIFER Insulin Human Lispro (Insulin Lispro 100 Unit/Ml 3ml Vial) 0 unit SUBCUT ACHS [facility]; Protocol Last Admin: 02/04/25 11:24 Dose: Not Given Documented By: Admin: 02/03/25 20:46 Dose: Not Given Documented By: Admin: 02/03/25 16:45 Dose: Not Given Documented By: Admin: 02/03/25 12:34 Dose: Not Given Documented By: Admin: 02/03/25 09:42 Dose: Not Given Documented By: Admin: 02/02/25 21:08 Dose: Not Given Documented By: Admin: 02/02/25 16:56 Dose: 8 unit Documented By: CHASTITY Co-signed By: Naloxone HCl (Naloxone 0.4 Mg/Ml Vial) 0.2 mg IV Q2MIN PRN PRN Reason: Opiate Reversal Ondansetron HCl (Ondansetron 4 Mg/2 Ml Inj) 4 mg IV NOW PRN PRN Reason: Nausea And Vomiting Ondansetron HCl (Ondansetron 4 Mg Odt) 4 mg PO NOW PRN PRN Reason: Nausea And Vomiting Pantoprazole Sodium (Pantoprazole Dr 40 Mg Tablet) 40 mg PO 0700,2100 [facility] Last Admin: 02/04/25 06:28 Dose: 40 mg Documented By: Admin: 02/03/25 20:39 Dose: 40 mg Documented By: Admin: 02/03/25 08:39 Dose: Not Given Documented By: [employer] [facility] Admin: 02/02/25 21:07 Dose: Not Given Documented By: Admin: 02/02/25 11:26 Dose: 40 mg Documented By: CATALINO Propranolol HCl (Propranolol 10 Mg Tablet) 10 [facility] BID [facility] Admin: 02/04/25 09:36 Dose: 10 mg Documented By: [employer] [facility] Admin: 02/03/25 20:39 Dose: 10 mg Documented By: Admin: 02/03/25 08:41 Dose: 10 mg Documented By: [employer] [facility] Admin: 02/02/25 21:06 Dose: 10 mg Documented By: Admin: 02/02/25 11:26 Dose: 10 mg Documented By: CATALINO Vancomycin HCl (Vancomycin Per Pharmacy) 1 request [facility] NOW PRN PRN Reason: severe sepsis Vancomycin HCl (Vancomycin Trough) 1 request [facility] 1130 [facility] Stop: 02/05/25 11:31 Vancomycin HCl (Vancomycin Peak) 1 request [facility] 1430 [facility] Stop: 02/05/25 14:31 Vital Signs Vital signs: Vital Signs - 8 hr 02/01/25 19:51 02/01/25 20:17 02/01/25 20:20 Temperature 98.4 F Pulse Rate 117 H 113 H Respiratory Rate 18 Blood Pressure 103/69 99/61 Pulse Oximetry 96 Oxygen Delivery Method Room Air 02/01/25 20:20 02/01/25 20:30 02/01/25 20:30 Temperature Pulse Rate 114 H 110 H Respiratory Rate 21 15 Blood Pressure 94/58 L Pulse Oximetry 99 99 Oxygen Delivery Method Room Air Room Air 02/01/25 21:00 02/01/25 21:00 02/01/25 21:34 Temperature Pulse Rate 111 H 112 H Respiratory Rate 21 Blood Pressure 112/70 Pulse Oximetry 99 Oxygen Delivery Method Room Air 02/01/25 22:00 02/01/25 22:30 02/01/25 23:00 Temperature Pulse Rate 108 H 107 H 107 H Respiratory Rate 15 16 16 Blood Pressure Pulse Oximetry 100 98 98 Oxygen Delivery Method Room Air 02/01/25 23:30 02/02/25 00:00 02/02/25 00:10 Temperature Pulse Rate 106 H 109 H 112 H Respiratory Rate 15 16 17 Blood Pressure Pulse Oximetry 98 99 100 Oxygen Delivery Method Room Air 02/02/25 00:10 02/02/25 00:30 02/02/25 00:30 Temperature Pulse Rate 108 H 108 H Respiratory Rate 16 16 Blood Pressure 126/60 Pulse Oximetry 98 98 Oxygen Delivery Method Room Air Room Air 02/02/25 00:30 Temperature Pulse Rate Respiratory Rate Blood Pressure 102/64 Pulse Oximetry Oxygen Delivery Method MDM - Weakness <Anne Flannery, DO - Last Filed: 02/05/25 10:38> Lab Data 02/04/25 12:41 02/04/25 04:30 Labs: Lab Results 02/01/25 02/01/25 02/01/25 Range/Units 19:40 21:44 22:15 WBC 14.1 H (4.5-11.0) X10^3/uL RBC 2.66 L (4.5-5.9) X10^6/uL Hgb 9.6 L (13.5-17.5) g/dL Hct 28.1 L (41-53) % MCV 105.4 H (80-100) fL MCH 36.1 H (26-34) PG MCHC 34.3 (30-36) % RDW 14.1 (11.6-14.8) % Plt Count 171 (150-400) X10^3/uL Neut % (Auto) 73.0 (50-75) % Lymph % (Auto) 15.4 L (25-40) % [place] % (Auto) 11.5 (3-14) % Eos % (Auto) 0.0 L (2-4) % Baso % (Auto) 0.1 (0-2) % Neut # (Auto) 77058 H (2027-3014) /uL Lymph # (Auto) 2200 (2033-7655) /uL [place] # (Auto) 1600 H (0-900) /uL Eos # (Auto) 0 (0-450) /uL Baso # (Auto) 0 (0-100) /uL PT 12.8 H (9.4-12.5) SECONDS INR 1.1 (0.9-1.3) APTT 22 L (25.1-36.5) SECONDS Sodium 130 L (137-145) mmol/L Potassium 4.2 (3.4-5.1) mmol/L Chloride 90 L (98-107) mmol/L Carbon Dioxide 21 L (22-32) mmol/L BUN 77 H (9-20) mg/dL Creatinine 2.14 H (0.66-1.25) mg/dL Estimated GFR 34 L (>60) mL/min BUN/Creatinine Ratio 36.0 H (6-22) Glucose 299 H (70-99) mg/dL Lactate 8.9 H* 6.8 H* (0.7-2.1) mmol/L Calcium 9.1 (8.4-10.2) mg/dL Total Bilirubin 1.0 (0.2-1.3) mg/dL AST 419 H (17-59) IU/L ALT 262 H (<50) IU/L Alkaline Phosphatase 80 (38-126) U/L Total Creatine Kinase 52 L (55-170) U/L Troponin I 0.015 (0.01-0.034) ng/mL NT-Pro-B Natriuret Pep 124 (<125) pg/mL Total Protein 6.6 (6.3-8.2) g/dL Albumin 4.2 (3.5-5.0) g/dL Globulin 2.4 (1.7-4.1) g/dL Albumin/Globulin Ratio 1.8 (1.0-2.8) Lipase 149 (23-300) U/L Procalcitonin 0.939 H (<0.5) ng/mL Urine Color Yellow Urine Appearance Clear Urine pH 6.0 (4.5-8.0) Ur Specific [place] 1.015 (1.000-1.035) Urine Protein Negative (Negative) Urine Glucose (UA) 1+ H (Negative) g/dL Urine Ketones 1+ H (NEGATIVE) Urine Occult Blood Negative (Negative) Urine Nitrate Negative (Negative) Urine Bilirubin Negative (NEGATIVE) Urine Urobilinogen 0.2 (0.2) E.U./dL Ur Leukocyte Esterase Negative (NEGATIVE) Urine RBC None seen (0-5/HPF) Urine WBC None seen (0-5/HPF) Ur Squamous Epith Cells 0-1 /hpf (0-5/HPF) Urine Bacteria None seen (None) Hyaline Casts 0-1/lpf (None) Ur Culture Indicated? Cult not indicated Vol Urine Centrifuged 10ml (spun) ECG Data Attestation: I personally reviewed and interpreted this ECG as follows: Interpretation: Sinus tachycardia rate of 114 ND 128 QRS 82 QTC of [address]-elevation nonspecific change. No priors for comparison MDM Narrative Medical decision making narrative: EKG sinus tachycardia rate of 114, nonspecific change Labs, white count is 14 hemoglobin is 9.6 patient has macrocytosis platelets are 171. INR is 1.1, PTT is 22, sodium is 130 potassium is 4.2 chloride 90 with a CO2 of 21 BUN 77 creatinine is 2.14 with a glucose of 299 lactate is 8.9 bilirubin is 1 with a AST of 419 and ALT of 262 alk-phos is 80, lipase is 149 procalcitonin 0.939 with a troponin is 0.015, BNP is 124. Repeat lactate is improved at 6.8 but still elevated. Urine shows 1+ glucose 1+ ketones, nitrates no leuks, 1 squamous 1 cast. Chest x-ray shows no acute cardiopulmonary abnormality CT chest abdomen and pelvis without contrast Patient received 30 cc/kilos bolus, broad-spectrum antibiotics with Rocephin and vancomycin. Patient has several potential sources did have a recent dental surgery yesterday also has a procedural sedation so could have an aspiration pneumonia, has a known chronic kidney disease. Patient's blood pressure has been improving with 30 cc/kilos bolus he is still slightly tachycardic but also improving, rate is 108. Patient signed out to Dr. Loomis while awaiting CT imaging. <Ray Loomis MD - Last Filed: 02/02/25 03:27> Lab Data Labs: Lab Results 02/01/25 02/01/25 02/01/25 Range/Units 19:40 21:44 22:15 WBC 14.1 H (4.5-11.0) X10^3/uL RBC 2.66 L (4.5-5.9) X10^6/uL Hgb 9.6 L (13.5-17.5) g/dL Hct 28.1 L (41-53) % MCV 105.4 H (80-100) fL MCH 36.1 H (26-34) PG MCHC 34.3 (30-36) % RDW 14.1 (11.6-14.8) % Plt Count 171 (150-400) X10^3/uL Neut % (Auto) 73.0 (50-75) % Lymph % (Auto) 15.4 L (25-40) % [place] % (Auto) 11.5 (3-14) % Eos % (Auto) 0.0 L (2-4) % Baso % (Auto) 0.1 (0-2) % Neut # (Auto) 97472 H (7657-1389) /uL Lymph # (Auto) 2200 (4181-8712) /uL [place] # (Auto) 1600 H (0-900) /uL Eos # (Auto) 0 (0-450) /uL Baso # (Auto) 0 (0-100) /uL PT 12.8 H (9.4-12.5) SECONDS INR 1.1 (0.9-1.3) APTT 22 L (25.1-36.5) SECONDS Sodium 130 L (137-145) mmol/L Potassium 4.2 (3.4-5.1) mmol/L Chloride 90 L (98-107) mmol/L Carbon Dioxide 21 L (22-32) mmol/L BUN 77 H (9-20) mg/dL Creatinine 2.14 H (0.66-1.25) mg/dL Estimated GFR 34 L (>60) mL/min BUN/Creatinine Ratio 36.0 H (6-22) Glucose 299 H (70-99) mg/dL Lactate 8.9 H* 6.8 H* (0.7-2.1) mmol/L Calcium 9.1 (8.4-10.2) mg/dL Total Bilirubin 1.0 (0.2-1.3) mg/dL AST 419 H (17-59) IU/L ALT 262 H (<50) IU/L Alkaline Phosphatase 80 (38-126) U/L Total Creatine Kinase 52 L (55-170) U/L Troponin I 0.015 (0.01-0.034) ng/mL NT-Pro-B Natriuret Pep 124 (<125) pg/mL Total Protein 6.6 (6.3-8.2) g/dL Albumin 4.2 (3.5-5.0) g/dL Globulin 2.4 (1.7-4.1) g/dL Albumin/Globulin Ratio 1.8 (1.0-2.8) Lipase 149 (23-300) U/L Procalcitonin 0.939 H (<0.5) ng/mL Urine Color Yellow Urine Appearance Clear Urine pH 6.0 (4.5-8.0) Ur Specific [place] 1.015 (1.000-1.035) Urine Protein Negative (Negative) Urine Glucose (UA) 1+ H (Negative) g/dL Urine Ketones 1+ H (NEGATIVE) Urine Occult Blood Negative (Negative) Urine Nitrate Negative (Negative) Urine Bilirubin Negative (NEGATIVE) Urine Urobilinogen 0.2 (0.2) E.U./dL Ur Leukocyte Esterase Negative (NEGATIVE) Urine RBC None seen (0-5/HPF) Urine WBC None seen (0-5/HPF) Ur Squamous Epith Cells 0-1 /hpf (0-5/HPF) Urine Bacteria None seen (None) Hyaline Casts 0-1/lpf (None) Ur Culture Indicated? Cult not indicated Vol Urine Centrifuged 10ml (spun) Imaging Data CT chest abdomen and pelvis: Radiologist Impression: [address] [address] [address] Scan Report Signed Patient: Girma Pena MR#: [id number] : 1960 Acct:[id number] Age/Sex: 64 / M Date of Service: 02/01/25 Loc: ED Accession Number: [id number] Procedure: CT chest abd pel wo con Ordering Provider: Anne Flannery D.O. PROCEDURE: CT CHEST ABD PEL WO CON INDICATIONS: hypotension, tachy, vomiting, had procedural sedation TECHNIQUE: After the administration of oral contrast, 5 mm thick sections acquired from the lung apices to the symphysis pubis. 5 mm thick coronal and sagittal reformats acquired, with additional 7 mm coronal MIP reformats through the lungs. For radiation dose reduction, the following was used: automated exposure control, adjustment of mA and/or kV according to patient size. COMPARISON: [facility], RG, CT KIDNEY W / WO CONTRAST, 11/05/2020, 13:55. [facility], MR, MR ABDOMEN WITHOUT CONTRAST, 04/16/2023, 11:53. FINDINGS: Image quality: Diagnostic. Evaluation of the solid parenchymal organs is limited without IV contrast. CHEST: Lower Neck: No enlarged lymph nodes. Thyroid: No thyroid nodules which require sonographic follow up, per consensus guidelines. Axillae: No enlarged lymph nodes. Chest Wall: Unremarkable. Bones: Unremarkable. Lungs and Pleura: No pneumothorax or pleural effusions. Small opacity in the left upper lobe. Micro nodules at the right minor fissure. No significant pulmonary nodules. Heart: Heart size is normal. Coronary artery calcifications. No pericardial effusion. Thoracic Vessels: The aorta and pulmonary arteries demonstrate normal size. Mediastinum and [place]: No enlarged lymph nodes. Esophagus: Question thickening of the distal esophagus. No hiatal hernia. ABDOMEN: Liver: No contour abnormality. Gallbladder: Several small gallstones. Biliary ducts: No biliary dilation. Pancreas: No ductal dilation. Spleen: Size is within normal limits. Adrenal Glands: No adrenal nodules. Kidneys and Ureters: No convincing hydronephrosis. Right pelviectasis, unchanged since 2020. 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 No kidney stones. No solid mass. Stomach and Bowel: Normal colonic caliber, without significant wall thickening. Normal appendix. No small bowel obstruction. The stomach is distended. Peritoneum: No abnormal intraperitoneal fluid. No free air. Ventral Wall: No hernia. Abdominal Nodes: No retroperitoneal or mesenteric adenopathy by size criteria. Vessels: Aorta and inferior vena cava are normal in size. PELVIS: Pelvic Organs: Unremarkable. Bladder: Distended. No stone. Pelvic Nodes: No enlarged lymph nodes. Miscellaneous: Bilateral inguinal hernias are seen. Bones: No aggressive osseous abnormality. L5-S1 Schmorl's nodes. IMPRESSION: 1. Stomach is distended. Suspected thickening at the distal esophagus. 2. No small bowel obstruction. No free fluid. No pneumoperitoneum. 3. No kidney stones. Gallstones. Dictated by: Ash Preston M.D. on 02/01/2025 at 23:37 Approved by: Ash Preston M.D. on 02/01/2025 at 23:47 [facility] Narrative Medical decision making narrative: EKG sinus tachycardia rate of 114, nonspecific change Labs, white count is 14 hemoglobin is 9.6 patient has macrocytosis platelets are 171. INR is 1.1, PTT is 22, sodium is 130 potassium is 4.2 chloride 90 with a CO2 of 21 BUN 77 creatinine is 2.14 with a glucose of 299 lactate is 8.9 bilirubin is 1 with a AST of 419 and ALT of 262 alk-phos is 80, lipase is 149 procalcitonin 0.939 with a troponin is 0.015, BNP is 124. Repeat lactate is improved at 6.8 but still elevated. Urine shows 1+ glucose 1+ ketones, nitrates no leuks, 1 squamous 1 cast. Chest x-ray shows no acute cardiopulmonary abnormality CT chest abdomen and pelvis without contrast Patient received 30 cc/kilos bolus, broad-spectrum antibiotics with Rocephin and vancomycin. Patient has several potential sources did have a recent dental surgery yesterday also has a procedural sedation so could have an aspiration pneumonia, has a known chronic kidney disease. Patient's blood pressure has been improving with 30 cc/kilos bolus he is still slightly tachycardic but also improving, rate is 108. Patient signed out to Dr. Loomis while awaiting CT imaging. 02/01/25, 2300, Vladislav. 64-year-old male with history of CKD, diabetes mellitus, prior ureteral stent in the past that has been removed. Had dental procedure gum grafting with extraction surgery yesterday [facility] Today feeling lightheaded. Had initial low blood pressure systolic blood pressure 80s initially, initial lactate 8 elevated, fluids given, blood cultures, white blood cell count 89907, antibiotics initiated IV vancomycin and IV ceftriaxone, urinalysis not obviously infected, chest x-ray without obvious infiltrate, troponin measurable but low. CT chest abdomen and pelvis ordered, to look for specific causes of occult infection. Denies pain in the abdomen. Denies painful or frequent urination. Denies sensation of fevers or chills. Systolic blood pressure 112 most recently after fluids. Repeat lactate [address] imaging reports still pending. Assumed care. CT chest abdomen and pelvis. IMPRESSION: 1. Stomach is distended. Suspected thickening at the distal esophagus. 2. No small bowel obstruction. No free fluid. No pneumoperitoneum. 3. No kidney stones. Gallstones. See radiology report. 0030, case discussed with hospitalist Dr. Saenz who accepts patient for admission to inpatient service, requests further broad empriric antibiotic coverage with Zosyn. IV Zosyn additionally ordered. Patient given vancomycin and ceftriaxone prior. Sepsis reassessment after fluid bolus: blood pressure improved, good cap refill extremities, alert. Most recent systolic blood pressure 126, further improved. Discharge Plan Departure Patient Disposition: Admitted As Inpatient Clinical Impression: Severe sepsis, History of surgical procedure on mouth Admit Date/Time: 02/02/25 00:34 Admit Provider: Carl Saenz
[2025-02-01 20:36] LABS: Add Manual Diff / Slide Review NO; Hematocrit 28.1 % (41-53); Hemoglobin 9.6 g/dL (13.5-17.5); Lymphocytes Absolute Auto 2200 /uL (1100-4500); Mean Corpuscular HGB Conc 34.3 % (30-36); Mean Corpuscular Hemoglobin 36.1 PG (26-34); Mean Corpuscular Volume 105.4 fL (80-100); Platelet Count 171 X10^3/uL (150-400)
[2025-02-01 20:47] LABS: Creatine Kinase 52 U/L (55-170)
[2025-02-01 20:48] LABS: Procalcitonin 0.939 ng/mL (<0.5)
[2025-02-01] MEDS: SODIUM CHLORIDE 0.9% 2,109.21 ML 703.07 ML IV (20:57)
[2025-02-01] MEDS: cefTRIAXone 2,000 MG in SODIUM CHLORIDE 0.9% 100 ML 200 MG IV (20:58)
[2025-02-01 21:00] LABS: NT-proBNP (BNP-Adult 18+) 124 pg/mL (<125); Troponin I 0.015 ng/mL (0.01-0.034)
--- NOTE | 2025-02-01 21:16 | DI.CT.S_ITS ---
PROCEDURE: CT CHEST ABD PEL WO CON INDICATIONS: hypotension, tachy, vomiting, had procedural sedation TECHNIQUE: After the administration of oral contrast, 5 mm thick sections acquired from the lung apices to the symphysis pubis. 5 mm thick coronal and sagittal reformats acquired, with additional 7 mm coronal MIP reformats through the lungs. For radiation dose reduction, the following was used: automated exposure control, adjustment of mA and/or kV according to patient size. COMPARISON: [facility], RG, CT KIDNEY W / WO CONTRAST, 11/05/2020, 13:55. [facility], MR, MR ABDOMEN WITHOUT CONTRAST, 04/16/2023, 11:53. FINDINGS: Image quality: Diagnostic. Evaluation of the solid parenchymal organs is limited without IV contrast. CHEST: Lower Neck: No enlarged lymph nodes. Thyroid: No thyroid nodules which require sonographic follow up, per consensus guidelines. Axillae: No enlarged lymph nodes. Chest Wall: Unremarkable. Bones: Unremarkable. Lungs and Pleura: No pneumothorax or pleural effusions. Small opacity in the left upper lobe. Micro nodules at the right minor fissure. No significant pulmonary nodules. Heart: Heart size is normal. Coronary artery calcifications. No pericardial effusion. Thoracic Vessels: The aorta and pulmonary arteries demonstrate normal size. Mediastinum and Leonora: No enlarged lymph nodes. Esophagus: Question thickening of the distal esophagus. No hiatal hernia. ABDOMEN: Liver: No contour abnormality. Gallbladder: Several small gallstones. Biliary ducts: No biliary dilation. Pancreas: No ductal dilation. Spleen: Size is within normal limits. Adrenal Glands: No adrenal nodules. Kidneys and Ureters: No convincing hydronephrosis. Right pelviectasis, unchanged since 2020. 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 No kidney stones. No solid mass. Stomach and Bowel: Normal colonic caliber, without significant wall thickening. Normal appendix. No small bowel obstruction. The stomach is distended. Peritoneum: No abnormal intraperitoneal fluid. No free air. Ventral Wall: No hernia. Abdominal Nodes: No retroperitoneal or mesenteric adenopathy by size criteria. Vessels: Aorta and inferior vena cava are normal in size. PELVIS: Pelvic Organs: Unremarkable. Bladder: Distended. No stone. Pelvic Nodes: No enlarged lymph nodes. Miscellaneous: Bilateral inguinal hernias are seen. Bones: No aggressive osseous abnormality. L5-S1 Schmorl's nodes. IMPRESSION: 1. Stomach is distended. Suspected thickening at the distal esophagus. 2. No small bowel obstruction. No free fluid. No pneumoperitoneum. 3. No kidney stones. Gallstones. Dictated by: Ash Preston M.D. on 02/01/2025 at 23:37 Approved by: Ash Preston M.D. on 02/01/2025 at 23:47
--- NOTE | 2025-02-01 21:21 | PC.NURSE ---
Pt to imaging via ED stretcher with hvac service tech
[2025-02-01 21:56] LABS: Reflexed Lactate in 2 Hours Y
[2025-02-01 22:09] LABS: Lactate 2HR (Lactic Acid Rflx) 6.8 mmol/L (0.7-2.1)
[2025-02-01 22:18] LABS: Appearance Urine UA CLEAR; Bilirubin Urine UA NEGATIVE (NEGATIVE); Color Urine UA YELLOW; Glucose Urine UA 1+ g/dL (Negative); Ketones Urine UA 1+ (NEGATIVE); Leukocyte Esterase Urine UA NEGATIVE (NEGATIVE); Nitrite Urine UA NEGATIVE (Negative); Occult Blood Urine UA NEGATIVE (Negative); Protein Urine UA NEGATIVE (Negative); Specific Gravity Urine UA 1.015 (1.000-1.035); Urobilinogen Urine UA 0.2 E.U./dL (0.2); pH Urine UA 6.0 (4.5-8.0)
[2025-02-01 22:24] LABS: Culture Indicated Urine Cult Not Indicated
[2025-02-02] VITALS (8 sets, daily range): BP systolic 102–140; BP diastolic 60–67; PULSE 91–112; RESP 14–18; TEMP 36.8–37.6; O2SAT 97–100; BMI 24.7
[2025-02-02] MEDS: LACTATED RINGERS 1,000 ML 1000 ML IV (01:35)
[2025-02-02] MEDS: PIPERACILLIN/TAZO 4.5 GM in SODIUM CHLORIDE 0.9% 100 ML IV (01:38)
[2025-02-02] MEDS: SODIUM CHLORIDE 0.9% 1,000 ML 100 ML IV ×3 (02:39→22:15)
[2025-02-02 07:00] LABS: Add Manual Diff / Slide Review NO; Lymphocytes Absolute Auto 1600 /uL (1100-4500); Mean Corpuscular HGB Conc 34.6 % (30-36); Mean Corpuscular Hemoglobin 36.7 PG (26-34); Mean Corpuscular Volume 106.1 fL (80-100); Platelet Count 88 X10^3/uL (150-400)
--- NOTE | 2025-02-02 07:01 | PM.HP.1 ---
History of Present Illness History of Present Illness Date Patient Seen: 02/02/25 Time Patient Seen: 00:12 Chief complaint: gen weakness Narrative: 64-year-old male with past medical history of insulin-dependent diabetes, CKD stage IV, hyperlipidemia, hypertension presents with near syncope. Per the patient report, the patient had a dental extraction with graft placement yesterday by his dental surgeon. The patient did have procedural sedation but is unsure it was intubated or not. The patient was given amoxicillin today to take after the procedure. The patient however denies any chills but might have some subjective fever. In addition the patient denies any increasing pain in his site where his tooth was extracted and has no significant discharge. The patient states that he has some fatigue and some mild shortness of breath but denies any coughing, nausea, vomiting, diarrhea, dysuria or significant abdominal pain. The patient does take metformin at home in addition to his insulin. In the emergency room, the patient was soft and his blood pressure and did require sepsis protocol bolus with improvement in the systolic blood pressure in the 1 teens. Lactic acid came back at 8.9 but after IV fluids 6.8. WBC 14 hemoglobin 9.6 sodium 130 creatinine 2.1 and glucose 299. UA was negative for UTI and chest x-ray was clear. No clear source of infection was identified hence CT chest abdomen and pelvic were done. Again no clear source of infection identified with these imaging. Empiric vancomycin and Zosyn started. [facility] Medical History Obstruction of right ureteropelvic junction (UPJ) CKD (chronic kidney disease) Erectile dysfunction associated with type 2 diabetes mellitus BPH loc w/o ur obs/LUTS Family history of prostate cancer in father Benign essential hypertension Regular astigmatism Myopia Presbyopia [place] (obstructive sleep apnea) Ocular hypertension Family history of malignant neoplasm Cholelithiases Diabetes Surgical History Hx of colonoscopy (02/10/21) Social History marital status: household members: spouse leisure activities: exercise Smoking Status: Never smoker alcohol intake: current caffeine: Yes Meds Home Medications and Allergies Home Medications ?Medication ?Instructions ?Recorded ?Confirmed ?Type aspirin 81 mg tablet,delayed 81 mg PO BID ##0 07/21/16 09/23/21 History release atorvastatin 20 mg tablet (Lipitor) 20 mg PO HS ##0 07/21/16 09/23/21 History losartan 100 mg tablet (Cozaar) 100 mg PO DAILY #0 tabs 01/01/21 09/23/21 History meloxicam 15 mg tablet 15 mg PO .prn 09/23/21 09/23/21 History metformin 1,000 mg tablet 1,000 mg PO BID 09/23/21 09/23/21 History sildenafil 25 mg tablet 25 mg PO DAILY PRN sexual activity 10/26/21 Rx #30 tabs Allergies Allergy/AdvReac Type Severity Reaction Status Date / Time No Known Drug Allergies Allergy Verified 02/01/25 19:51 Review of Systems Review of Systems ROS: Yes All systems reviewed with the patient and are negative except as otherwise documented Exam Vital Signs (past 8 hours): - 02/01/25 23:30 02/02/25 00:00 02/02/25 00:10 Temperature Pulse Rate 106 H 109 H 112 H Respiratory Rate 15 16 17 Blood Pressure Pulse Oximetry 98 99 100 Oxygen Delivery Method Room Air Oxygen Flow Rate 02/02/25 00:10 02/02/25 00:30 02/02/25 00:30 Temperature Pulse Rate 108 H 108 H Respiratory Rate 16 16 Blood Pressure 126/60 Pulse Oximetry 98 98 Oxygen Delivery Method Room Air Room Air Oxygen Flow Rate 02/02/25 00:30 02/02/25 01:00 02/02/25 01:00 Temperature Pulse Rate 108 H Respiratory Rate 15 Blood Pressure 102/64 106/65 Pulse Oximetry 98 Oxygen Delivery Method Room Air Oxygen Flow Rate 02/02/25 01:27 Temperature 99.5 F Pulse Rate 109 H Respiratory Rate 14 Blood Pressure 140/67 Pulse Oximetry 99 Oxygen Delivery Method Oxygen Flow Rate 0 Oxygen Delivery Method Room Air Oxygen Flow Rate 0 Narrative Exam Narrative: Physical Exam: GENERAL: The patient is not in any acute distressed. Awake and alert. HEENT: Nonicteric sclerae, PERRLA, EOMI. Oropharynx clear. Moist mucous membranes. Conjunctivae appear well perfused. HEART: Regular rate and rhythm without murmurs. No lower extremities edema. LUNGS: Clear to auscultation bilaterally. No wheezing, crackles or rhonchi ABDOMEN: Soft, positive bowel sounds, nontender. SKIN: No rash, no excessive bruising, petechiae, or purpura. NEUROLOGIC: AxO x 3. Cranial nerves II-XII intact without motor/sensory deficit. Objective Labs 02/01/25 19:40 02/01/25 19:40 Labs: Laboratory Results - last 24 hr 02/01/25 02/01/25 02/01/25 19:40 21:44 22:15 WBC 14.1 H RBC 2.66 L Hgb 9.6 L Hct 28.1 L MCV 105.4 H MCH 36.1 H MCHC 34.3 RDW 14.1 Plt Count 171 Neut % (Auto) 73.0 Lymph % (Auto) 15.4 L [place] % (Auto) 11.5 Eos % (Auto) 0.0 L Baso % (Auto) 0.1 Neut # (Auto) 01020 H Lymph # (Auto) 2200 [place] # (Auto) 1600 H Eos # (Auto) 0 Baso # (Auto) 0 PT 12.8 H INR 1.1 APTT 22 L Sodium 130 L Potassium 4.2 Chloride 90 L Carbon Dioxide 21 L BUN 77 H Creatinine 2.14 H Estimated GFR 34 L BUN/Creatinine Ratio 36.0 H Glucose 299 H Lactate 8.9 H* 6.8 H* Calcium 9.1 Total Bilirubin 1.0 AST 419 H ALT 262 H Alkaline Phosphatase 80 Total Creatine Kinase 52 L Troponin I 0.015 NT-Pro-B Natriuret Pep 124 Total Protein 6.6 Albumin 4.2 Globulin 2.4 Albumin/Globulin Ratio 1.8 Lipase 149 Procalcitonin 0.939 H Urine Color Yellow Urine Appearance Clear Urine pH 6.0 Ur Specific [place] 1.015 Urine Protein Negative Urine Glucose (UA) 1+ H Urine Ketones 1+ H Urine Occult Blood Negative Urine Nitrate Negative Urine Bilirubin Negative Urine Urobilinogen 0.2 Ur Leukocyte Esterase Negative Urine RBC None seen Urine WBC None seen Ur Squamous Epith Cells 0-1 /hpf Urine Bacteria None seen Hyaline Casts 0-1/lpf Ur Culture Indicated? Cult not indicated Vol Urine Centrifuged 10ml (spun) Assessment & Plan Assessment & Plan narrative: Sepsis. Admit the patient to medical telemetry as inpatient. Unclear source of infection but patient can be bacteremic as patient recently had dental extraction and graft procedure. Will continue empirically to treat with IV vancomycin and Zosyn follow-up blood culture. Will continue IV fluid. Elevated lactic acid. Again lactic acid trended down from 8-6 after IV fluid. Continue to trend lactic acid with IV fluid and IV antibiotic as above. Insulin-dependent diabetes. Monitor glucose with subcu insulin. Hypertension. Hold blood pressure medication due to low blood pressure on arrival to ER. CKD stage IV. Creatinine close to baseline. Continue IV fluid and monitor creatinine. Creatinine currently is 2.1. DVT prophylaxis heparin subcu. CODE STATUS full code. Disposition likely home in 2 to 3 days - As the provider of this telehealth evaluation, requested by the patient's evaluating physician, I attest that I introduced myself to the patient, provided my credentials and determined that telemedicine via a real-time, 2 way interactive audio and video platform is an appropriate and effective means of providing this service. - I reviewed the patient's chart and had a discussion with the member of the patient's treatment team. - The patient and I mutually agreed with continuation of this evaluation via telemedicine. The patient consented for the telemedicine evaluation. - This virtual encounter was taken place from [place] by Dr. Carl Saenz. The patient was evaluated at [facility]. The encounter was approximately 35 minutes. The nurse was present during the entire time of the encounter and was able to assists with exam/stethoscope. Time-Based Coding :: [TOTAL MINUTES] spent with patient and on the chart (including review of chart, obtaining history, exam, reviewing outside data, placing orders, documenting exam and treatment plan, and counseling patient) on [DATE]. Quality VTE Deep Vein Thrombosis/Pulmonary Embolism Present on Admission: No
[2025-02-02 07:04] LABS: Hematocrit 19.8 % (41-53); Hemoglobin 6.9 g/dL (13.5-17.5)
[2025-02-02 07:19] LABS: Lactate (Lactic Acid) 3.4 mmol/L (0.7-2.1)
[2025-02-02 07:20] LABS: Alanine Aminotransferase 213 IU/L (<50); Albumin 2.7 g/dL (3.5-5.0); Albumin Globulin Ratio 1.4 (1.0-2.8); Alkaline Phosphatase 72 U/L (38-126); Blood Urea Nitrogen 64 mg/dL (9-20); Calcium 7.9 mg/dL (8.4-10.2); Carbon Dioxide 17 mmol/L (22-32); Chloride 106 mmol/L (98-107); Estimated Glomerular Filt Rate 53 mL/min (>60); Globulin 2.0 g/dL (1.7-4.1); Glucose 194 mg/dL (70-99); HEMOLYSIS < 15 (0-50); Potassium 4.5 mmol/L (3.4-5.1); Sodium 133 mmol/L (137-145); Total Protein 4.7 g/dL (6.3-8.2)
[2025-02-02] MEDS: PIPERACILLIN/TAZO 3.375 GM in SODIUM CHLORIDE 0.9% 100 ML IV ×2 (07:55→16:20)
[2025-02-02 08:17] LABS: Reflexed Lactate in 2 Hours Y
[2025-02-02 09:03] LABS: Add Manual Diff / Slide Review NO; Hematocrit 21.8 % (41-53); Hemoglobin 7.5 g/dL (13.5-17.5); Lymphocytes Absolute Auto 1600 /uL (1100-4500); Mean Corpuscular HGB Conc 34.5 % (30-36); Mean Corpuscular Hemoglobin 36.5 PG (26-34); Mean Corpuscular Volume 105.9 fL (80-100); Platelet Count 88 X10^3/uL (150-400)
[2025-02-02 09:14] LABS: Lactate 2HR (Lactic Acid Rflx) 2.7 mmol/L (0.7-2.1)
--- NOTE | 2025-02-02 10:21 | PM.HP.IH.1 ---
History of Present Illness History of Present Illness Date Patient Seen: 02/02/25 Time Patient Seen: 08:55 Chief complaint: gen weakness Narrative: From night hospitalist: 64-year-old male with past medical history of insulin-dependent diabetes, CKD stage IV, hyperlipidemia, hypertension presents with near syncope. Per the patient report, the patient had a dental extraction with graft placement yesterday by his dental surgeon. The patient did have procedural sedation but is unsure it was intubated or not. The patient was given amoxicillin today to take after the procedure. The patient however denies any chills but might have some subjective fever. In addition the patient denies any increasing pain in his site where his tooth was extracted and has no significant discharge. The patient states that he has some fatigue and some mild shortness of breath but denies any coughing, nausea, vomiting, diarrhea, dysuria or significant abdominal pain. The patient does take metformin at home in addition to his insulin. In the emergency room, the patient was soft and his blood pressure and did require sepsis protocol bolus with improvement in the systolic blood pressure in the 1 teens. Lactic acid came back at 8.9 but after IV fluids 6.8. WBC 14 hemoglobin 9.6 sodium 130 creatinine 2.1 and glucose 299. UA was negative for UTI and chest x-ray was clear. No clear source of infection was identified hence CT chest abdomen and pelvic were done. Again no clear source of infection identified with these imaging. Empiric vancomycin and Zosyn started. Interim history: The patient's hematocrit returned at 19.8% this morning, and 21.8% on recheck. He denies hematemesis, nausea, vomiting, diarrhea, melena, hematochezia or abdominal pain, and has had no chest pain or shortness of breath. 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 He underwent esophageal variceal banding 2 years ago. He had a colonoscopy 3 years ago with history of colon polyps. He usually drinks 3 glasses of wine daily, stating these are large glasses, and has no history of alcohol withdrawal, and denies anxiety or tremor. He states he is very anxious overall because his father of sepsis in this hospital 10 years ago. Primary care provider is Dr. Chano Rand at the [facility] in [place]. [facility] Medical History Benign essential hypertension BPH loc w/o ur obs/LUTS Cholelithiases Cirrhosis, alcoholic CKD (chronic kidney disease) Diabetes Erectile dysfunction associated with type 2 diabetes mellitus Esophageal varices Family history of malignant neoplasm Family history of prostate cancer in father Myopia Obstruction of right ureteropelvic junction (UPJ) Ocular hypertension HAVEN (obstructive sleep apnea) Presbyopia Regular astigmatism Surgical History Hx of colonoscopy (02/10/21) Family History Mother Diabetes mellitus Father Diabetes mellitus Brother Diabetes mellitus Pancreatic cancer Sister Diabetes mellitus Pancreatic cancer Social History marital status: household members: spouse leisure activities: exercise Smoking Status: Never smoker alcohol intake: current caffeine: Yes Meds Home Medications and Allergies Home Medications ?Medication ?Instructions ?Recorded ?Confirmed ?Type aspirin 81 mg tablet,delayed 81 mg PO BID ##0 07/21/16 02/02/25 History release Held on 02/02/25. Instructions: Provider's Order atorvastatin 20 mg tablet (Lipitor) 20 mg PO HS ##0 07/21/16 02/02/25 History Held on 02/02/25. Instructions: Change in level of care losartan 100 mg tablet (Cozaar) 100 mg PO DAILY #0 tabs 01/01/21 02/02/25 History meloxicam 15 mg tablet 15 mg PO .prn 09/23/21 02/02/25 History Held on 02/02/25. Instructions: Provider's Order metformin 1,000 mg tablet 2,000 mg PO DAILY 09/23/21 02/02/25 History sildenafil 25 mg tablet 25 mg PO DAILY PRN sexual activity 10/26/21 02/02/25 Rx #30 tabs amoxicillin 500 mg capsule 500 mg PO 3XD 02/02/25 02/02/25 History insulin glargine 100 unit/mL (3 14 unit SUBCUT DAILY 02/02/25 02/02/25 History mL) subcutaneous pen (Lantus Solostar U-100 Insulin) Allergies Allergy/AdvReac Type Severity Reaction Status Date / Time No Known Drug Allergies Allergy Verified 02/01/25 19:51 Review of Systems Review of Systems ROS: Yes All systems reviewed with the patient and are negative except as otherwise documented Exam Vital Signs (past 8 hours): Oxygen Delivery Method Room Air Oxygen Flow Rate 0 Narrative Exam Narrative: GENERAL: This is a well-nourished, well-developed patient, in no apparent distress. HEAD: Atraumatic. Normocephalic. No temporal or scalp tenderness. EYES: Pupils equal round and reactive. Extraocular motions intact. No scleral icterus. No injection or drainage. ENT: Mucous membranes pink and moist. NECK: Trachea midline. No JVD, bruits or lymphadenopathy. Supple, nontender, no meningeal signs. CARDIOVASCULAR: Tachycardic rhythm without murmurs, gallops, or rubs. RESPIRATORY: Clear to auscultation. GASTROINTESTINAL: Abdomen soft, non-tender, nondistended. EXTREMITIES: No clubbing, cyanosis, or edema. NEUROLOGIC: Alert, oriented, speech fluent, full upper and lower motor strength, no focal deficits evident. DERMATOLOGIC: No rashes or skin lesions. Objective ECG Impression: Sinus tachycardia at 114bpm Nonspecific T wave abnormality Imaging Chest x-ray: Radiologist's impression: No acute cardiopulmonary abnormality is seen. Chest/abdomen/pelvis CT without contrast:: Radiologist's impression: 1. Stomach is distended. Suspected thickening at the distal esophagus. 2. No small bowel obstruction. No free fluid. No pneumoperitoneum. 3. No kidney stones. Gallstones. Labs 02/02/25 08:57 02/02/25 06:21 Labs: Laboratory Results - last 24 hr 02/01/25 02/01/25 02/01/25 19:40 21:44 22:15 WBC 14.1 H RBC 2.66 L Hgb 9.6 L Hct 28.1 L MCV 105.4 H MCH 36.1 H MCHC 34.3 RDW 14.1 Plt Count 171 Neut % (Auto) 73.0 Lymph % (Auto) 15.4 L [place] % (Auto) 11.5 Eos % (Auto) 0.0 L Baso % (Auto) 0.1 Neut # (Auto) 22115 H Lymph # (Auto) 2200 [place] # (Auto) 1600 H Eos # (Auto) 0 Baso # (Auto) 0 PT 12.8 H INR 1.1 APTT 22 L Sodium 130 L Potassium 4.2 Chloride 90 L Carbon Dioxide 21 L BUN 77 H Creatinine 2.14 H Estimated GFR 34 L BUN/Creatinine Ratio 36.0 H Glucose 299 H Lactate 8.9 H* 6.8 H* Calcium 9.1 Total Bilirubin 1.0 AST 419 H ALT 262 H Alkaline Phosphatase 80 Total Creatine Kinase 52 L Troponin I 0.015 NT-Pro-B Natriuret Pep 124 Total Protein 6.6 Albumin 4.2 Globulin 2.4 Albumin/Globulin Ratio 1.8 Lipase 149 Procalcitonin 0.939 H Urine Color Yellow Urine Appearance Clear Urine pH 6.0 Ur Specific [place] 1.015 Urine Protein Negative Urine Glucose (UA) 1+ H Urine Ketones 1+ H Urine Occult Blood Negative Urine Nitrate Negative Urine Bilirubin Negative Urine Urobilinogen 0.2 Ur Leukocyte Esterase Negative Urine RBC None seen Urine WBC None seen Ur Squamous Epith Cells 0-1 /hpf Urine Bacteria None seen Hyaline Casts 0-1/lpf Ur Culture Indicated? Cult not indicated Vol Urine Centrifuged 10ml (spun) 02/02/25 02/02/25 06:21 08:57 WBC 7.5 7.5 RBC 1.87 L 2.06 L Hgb 6.9 L* 7.5 L Hct 19.8 L* 21.8 L MCV 106.1 H 105.9 H MCH 36.7 H 36.5 H MCHC 34.6 34.5 RDW 14.1 14.5 Plt Count 88 L 88 L Neut % (Auto) 68.5 68.4 Lymph % (Auto) 21.2 L 20.8 L [place] % (Auto) 9.9 10.2 Eos % (Auto) 0.2 L 0.2 L Baso % (Auto) 0.2 0.4 Neut # (Auto) 5100 5100 Lymph # (Auto) 1600 1600 [place] # (Auto) 700 800 Eos # (Auto) 0 0 Baso # (Auto) 0 0 PT INR APTT Sodium 133 L Potassium 4.5 Chloride 106 Carbon Dioxide 17 L BUN 64 H Creatinine 1.48 H Estimated GFR 53 L BUN/Creatinine Ratio 43.2 H Glucose 194 H D Lactate 3.4 H 2.7 H Calcium 7.9 L Total Bilirubin 0.5 AST 310 H ALT 213 H Alkaline Phosphatase 72 Total Creatine Kinase Troponin I NT-Pro-B Natriuret Pep Total Protein 4.7 L Albumin 2.7 L Globulin 2.0 Albumin/Globulin Ratio 1.4 Lipase Procalcitonin Urine Color Urine Appearance Urine pH Ur Specific [place] Urine Protein Urine Glucose (UA) Urine Ketones Urine Occult Blood Urine Nitrate Urine Bilirubin Urine Urobilinogen Ur Leukocyte Esterase Urine RBC Urine WBC Ur Squamous Epith Cells Urine Bacteria Hyaline Casts Ur Culture Indicated? Vol Urine Centrifuged Assessment & Plan Assessment & Plan narrative: 1. Sepsis. Admit the patient to medical telemetry as inpatient. Unclear source of infection but patient can be bacteremic as patient recently had dental extraction and graft procedure. Will continue empirically to treat with IV vancomycin and Zosyn follow-up blood culture. Will continue IV fluid. 2. Elevated lactic acid. Again lactic acid trended down from 8 to 2.7 after IV fluid. Continue to trend lactic acid with IV fluid and IV antibiotic as above. 3. Anemia, likely multifactorial with hemodilution, chronic kidney disease, inflammatory block. No evidence of bleeding at this point. Monitor closely. Avoid aspirin/NSAIDs/heparin. 4. F4 cirrhosis with history of esophageal varices, status post banding. Start propranolol 10 mg b.i.d. for prophylaxis. 5. Alcohol use disorder. Last drink 3 days ago. No evidence of alcohol withdrawal at this point and denies a history of alcohol withdrawal. Monitor closely. 6. Acute kidney injury on CKD stage IV. Creatinine has improved to baseline. Continue IV fluid and monitor creatinine. Creatinine currently is down from 2.1mg/dL to 1.48mg/dL. 7. Diabetes mellitus, type 2, on insulin. Monitor glucose with usual Lantus dosing and subcu insulin. 8. Hypertension. Hold home blood pressure medication (losartan 100mg daily) due to low blood pressure on arrival to ER. 9. Hyperlipidemia. Continue atorvastatin. Plan: -serial hematocrits -IV fluids -continue vancomycin and Zosyn -follow cultures -trend lactic acid -monitor for bleeding -propranolol 10mg BID variceal prophylaxis -PPI BID prophylaxis -monitor for alcohol withdrawal DVT prophylaxis: SCDs. Avoid Lovenox given anemia. CODE STATUS full code. Disposition likely home in 2 to 3 days Quality VTE Deep Vein Thrombosis/Pulmonary Embolism Present on Admission: No MIPS - Admit I confirm the patient?s Advance Care Plan is present, Code status is documented, Surrogate decision maker is in patient?s record [If Yes, STOP here]: Yes MIPS - Meds 'Current medications' to include all prescriptions, [id number] products, herbals, cannabis/cannabidiol products, and vitamin/mineral/dietary (nutritional) supplements. I have utilized all available resources to obtain, update, or review the patient?s current medications. [If Yes, STOP here]: Yes [facility] PROFEE Insurance Sales Specialist Document charge(s): No Charge Codes Initial inpatient/observation care: [id number]
[2025-02-02] MEDS: PANTOPRAZOLE DR 40 MG TABLET PO (11:26)
[2025-02-02] MEDS: PROPRANOLOL 10 MG TABLET PO ×2 (11:26→21:06)
[2025-02-02] MEDS: INSULIN GLARGINE 100 UNIT/ML 3ML PEN 14 UNIT SUBCUT (11:31)
--- NOTE | 2025-02-02 11:59 | CM.DANOTE ---
Initial DCP Assessment Note. Review EMR and PT Interview. Met with patient at bedside to discuss discharge needs.PT is alert x 4 sitting up in bed. No acute distress. Independent. Lives with . Payor:??MEHRDAD PRIME PCP: Dr.?Thomas Rand. [facility]. Summary & Plan:?64 y/o male arrived to ED c/o generalized weakness. Admitted INPT. Dx. Severe Sepsis s/p Dental procedure. Plan: IVF, ABX, Bld. Cx. Pending. Discharge Planning/Care Management CM Discharge Assessment Start: 02/02/25 01:27 Freq: Status: Active Protocol: Document 02/02/25 11:57 SM (Rec: 02/02/25 11:59 SM [id number]) Discharge Planning Assessment Assigned Discharge Irina Adkins RN CM Life Management Teacher Provider Dr. Chano Rand [facility] Insurance Mehrdad Advance Directives? No History Provided By Patient Prior Living Adult Family Home Arrangements Household Members spouse Type of Drives own vehicle transporation used prior to admit Independent with ADL Yes 's Is patient alert and Yes oriented? Caregiver for No Another Discharge Plan Home Transportation Arrangement Referrals Initiated None needed Review Status In Process Please Provide Date 02/02/25 Initial DC Assessment Was Performed Next Review Type Continued Stay Review
[2025-02-02 15:30] LABS: Hematocrit 19.4 % (41-53); Hemoglobin 6.7 g/dL (13.5-17.5)
[2025-02-02 15:32] LABS: Lactate (Lactic Acid) 1.7 mmol/L (0.7-2.1)
[2025-02-02] MEDS: INSULIN LISPRO 100 UNIT/ML 3ML VIAL SUBCUT (16:56)
--- NOTE | 2025-02-02 17:23 | PC.NURSE ---
1500 updated labs with H/H results of 6.7/19.[address] Forrester. Order for 1 unit PRBC transfusion received. Patient updated, he states he discussed with his and will decline on transfusion at this time. Dr. Forrester notified of declination of transfusion at this time. Patient agrees to have his type and screen being done.
--- NOTE | 2025-02-02 19:47 | PC.NURSE ---
Patient still declines blood transfusion at this time, patient instructed to let his RN know if he has further questions or would like to receive transfusion. Patient denies complaint at this time, call light and urinal within reach. Patient had BM, denies bleeding or dark stool (patient flushed/did not visualize)
[2025-02-02] MEDS: VANCOMYCIN 1,000 MG/200 ML PIGGYBACK 150 MG IV (21:19)
--- NOTE | 2025-02-02 22:02 | PC.NURSE ---
Patient has refused medication and insulin,Blood glucose 329mmol.Spoke to lab,pt refused blood draws as well.Dr Iniguez informed. To continue management.
[2025-02-03] VITALS (10 sets, daily range): BP systolic 105–133; BP diastolic 62–77; PULSE 67–91; RESP 13–20; TEMP 36.7–37.5; O2SAT 98–99
[2025-02-03] MEDS: PIPERACILLIN/TAZO 3.375 GM in SODIUM CHLORIDE 0.9% 100 ML IV ×4 (00:08→23:38)
[2025-02-03 05:15] LABS: Add Manual Diff / Slide Review NO; Lymphocytes Absolute Auto 1300 /uL (1100-4500); Mean Corpuscular HGB Conc 34.8 % (30-36); Mean Corpuscular Hemoglobin 36.8 PG (26-34); Mean Corpuscular Volume 105.8 fL (80-100); Platelet Count 76 X10^3/uL (150-400)
[2025-02-03 05:17] LABS: Hemoglobin 6.9 g/dL (13.5-17.5)
[2025-02-03 05:18] LABS: Hematocrit 20.0 % (41-53)
[2025-02-03 05:22] LABS: Alanine Aminotransferase 171 IU/L (<50); Albumin 3.1 g/dL (3.5-5.0); Albumin Globulin Ratio 1.3 (1.0-2.8); Alkaline Phosphatase 77 U/L (38-126); Blood Urea Nitrogen 36 mg/dL (9-20); Calcium 8.4 mg/dL (8.4-10.2); Carbon Dioxide 17 mmol/L (22-32); Chloride 108 mmol/L (98-107); Estimated Glomerular Filt Rate 58 mL/min (>60); Globulin 2.4 g/dL (1.7-4.1); Glucose 216 mg/dL (70-99); HEMOLYSIS < 15 (0-50); Potassium 4.2 mmol/L (3.4-5.1); Sodium 135 mmol/L (137-145); Total Protein 5.5 g/dL (6.3-8.2)
[2025-02-03 05:33] LABS: Troponin I 0.014 ng/mL (0.01-0.034)
[2025-02-03] MEDS: INSULIN GLARGINE 100 UNIT/ML 3ML PEN 14 UNIT SUBCUT (08:40)
[2025-02-03] MEDS: PROPRANOLOL 10 MG TABLET PO ×2 (08:41→20:39)
[2025-02-03] MEDS: SODIUM CHLORIDE 0.9% 1,000 ML 100 ML IV ×2 (11:04→21:42)
--- NOTE | 2025-02-03 11:23 | PM.PN.IH.1 ---
Subjective Subjective Date Patient Seen: 02/03/25 Time Patient Seen: 08:55 Interval history: Admission notes: 64-year-old male with past medical history of insulin-dependent diabetes, CKD stage IV, hyperlipidemia, hypertension presents with near syncope. Per the patient report, the patient had a dental extraction with graft placement yesterday by his dental surgeon. The patient did have procedural sedation but is unsure it was intubated or not. The patient was given amoxicillin today to take after the procedure. The patient however denies any chills but might have some subjective fever. In addition the patient denies any increasing pain in his site where his tooth was extracted and has no significant discharge. The patient states that he has some fatigue and some mild shortness of breath but denies any coughing, nausea, vomiting, diarrhea, dysuria or significant abdominal pain. The patient does take metformin at home in addition to his insulin. In the emergency room, the patient was soft and his blood pressure and did require sepsis protocol bolus with improvement in the systolic blood pressure in the 1 teens. Lactic acid came back at 8.9 but after IV fluids 6.8. WBC 14 hemoglobin 9.6 sodium 130 creatinine 2.1 and glucose 299. UA was negative for UTI and chest x-ray was clear. No clear source of infection was identified hence CT chest abdomen and pelvic were done. Again no clear source of infection identified with these imaging. Empiric vancomycin and Zosyn started. Interim history: The patient's hematocrit returned at 19.8% this morning, and 21.8% on recheck. He denies hematemesis, nausea, vomiting, diarrhea, melena, hematochezia or abdominal pain, and has had no chest pain or shortness of breath. 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 He underwent esophageal variceal banding 2 years ago. He had a colonoscopy 3 years ago with history of colon polyps. He usually drinks 3 glasses of wine daily, stating these are large glasses, and has no history of alcohol withdrawal, and denies anxiety or tremor. He states he is very anxious overall because his father of sepsis in this hospital 10 years ago. Primary care provider is Dr. Chano Rand at the [facility] in [place]. Subjective: 02/03: The patient's hematocrit fell to 19% overnight, improved to 20% on repeat. He declined a blood transfusion yesterday though on further discussion is agreeable. He further clarifies history, stating that on 02/01 he experienced coffee-ground emesis. No further bleeding reported. No fevers, chills, cough or other infectious symptoms noted. Exam Vital Signs (past 8 hours): - 02/03/25 04:00 02/03/25 08:01 02/03/25 10:38 Temperature 98.9 F 98.0 F 98.9 F Pulse Rate 83 88 85 Respiratory Rate 20 19 18 Blood Pressure 113/62 127/74 127/74 Pulse Oximetry 99 98 Oxygen Flow Rate 0 0 02/03/25 10:53 Temperature 98.8 F Pulse Rate 88 Respiratory Rate 18 Blood Pressure 110/65 Pulse Oximetry Oxygen Flow Rate Oxygen Delivery Method Room Air Oxygen Flow Rate 0 Narrative Exam Narrative: GENERAL: This is a well-nourished, well-developed patient, in no apparent distress. HEAD: Atraumatic. Normocephalic. No temporal or scalp tenderness. EYES: Pupils equal round and reactive. Extraocular motions intact. No scleral icterus. No injection or drainage. ENT: Mucous membranes pink and moist. NECK: Trachea midline. No JVD, bruits or lymphadenopathy. Supple, nontender, no meningeal signs. CARDIOVASCULAR: Tachycardic rhythm without murmurs, gallops, or rubs. RESPIRATORY: Clear to auscultation. GASTROINTESTINAL: Abdomen soft, non-tender, nondistended. EXTREMITIES: No clubbing, cyanosis, or edema. NEUROLOGIC: Alert, oriented, speech fluent, full upper and lower motor strength, no focal deficits evident. DERMATOLOGIC: No rashes or skin lesions. Objective ECG Impression: Sinus tachycardia at 114bpm Nonspecific T wave abnormality Imaging Chest x-ray: Radiologist's impression: No acute cardiopulmonary abnormality is seen. Chest/abdomen/pelvis CT without contrast:: Radiologist's impression: 1. Stomach is distended. Suspected thickening at the distal esophagus. 2. No small bowel obstruction. No free fluid. No pneumoperitoneum. 3. No kidney stones. Gallstones. Labs 02/03/25 04:50 02/03/25 04:50 Labs: Laboratory Results - last 24 hr 02/02/25 02/02/25 02/02/25 11:29 15:10 16:39 WBC RBC Hgb 6.7 L* Hct 19.4 L* MCV MCH MCHC RDW Plt Count Neut % (Auto) Lymph % (Auto) [place] % (Auto) Eos % (Auto) Baso % (Auto) Neut # (Auto) Lymph # (Auto) [place] # (Auto) Eos # (Auto) Baso # (Auto) Sodium Potassium Chloride Carbon Dioxide BUN Creatinine Estimated GFR BUN/Creatinine Ratio Glucose POC Whole Bld Glucose 240 H 375 H D Lactate 1.7 Calcium Total Bilirubin AST ALT Alkaline Phosphatase Troponin I Total Protein Albumin Globulin Albumin/Globulin Ratio Blood Type Antibody Screen Crossmatch 02/02/25 02/02/25 02/03/25 17:23 20:17 04:50 WBC 5.3 RBC 1.89 L Hgb 6.9 L* Hct 20.0 L* MCV 105.8 H MCH 36.8 H MCHC 34.8 RDW 14.1 Plt Count 76 L Neut % (Auto) 60.7 Lymph % (Auto) 25.1 [place] % (Auto) 12.9 Eos % (Auto) 0.9 L Baso % (Auto) 0.4 Neut # (Auto) 3200 Lymph # (Auto) 1300 [place] # (Auto) 700 Eos # (Auto) 0 Baso # (Auto) 0 Sodium 135 L Potassium 4.2 Chloride 108 H Carbon Dioxide 17 L BUN 36 H Creatinine 1.37 H Estimated GFR 58 L BUN/Creatinine Ratio 26.3 H Glucose 216 H POC Whole Bld Glucose 329 H Lactate Calcium 8.4 Total Bilirubin 0.9 AST 158 H ALT 171 H Alkaline Phosphatase 77 Troponin I 0.014 Total Protein 5.5 L Albumin 3.1 L Globulin 2.4 Albumin/Globulin Ratio 1.3 Blood Type O Positive Antibody Screen Negative Crossmatch See Detail 02/03/25 07:57 WBC RBC Hgb Hct MCV MCH MCHC RDW Plt Count Neut % (Auto) Lymph % (Auto) [place] % (Auto) Eos % (Auto) Baso % (Auto) Neut # (Auto) Lymph # (Auto) [place] # (Auto) Eos # (Auto) Baso # (Auto) Sodium Potassium Chloride Carbon Dioxide BUN Creatinine Estimated GFR BUN/Creatinine Ratio Glucose POC Whole Bld Glucose 221 H D Lactate Calcium Total Bilirubin AST ALT Alkaline Phosphatase Troponin I Total Protein Albumin Globulin Albumin/Globulin Ratio Blood Type Antibody Screen Crossmatch [facility] Medical History Benign essential hypertension BPH loc w/o ur obs/LUTS Cholelithiases Cirrhosis, alcoholic CKD (chronic kidney disease) Diabetes Erectile dysfunction associated with type 2 diabetes mellitus Esophageal varices Family history of malignant neoplasm Family history of prostate cancer in father Myopia Obstruction of right ureteropelvic junction (UPJ) Ocular hypertension HAVEN (obstructive sleep apnea) Presbyopia Regular astigmatism Surgical History Hx of colonoscopy (02/10/21) Family History Mother Diabetes mellitus Father Diabetes mellitus Brother Diabetes mellitus Pancreatic cancer Sister Diabetes mellitus Pancreatic cancer Social History marital status: household members: spouse leisure activities: exercise Smoking Status: Never smoker alcohol intake: current caffeine: Yes Assessment & Plan Assessment & Plan narrative: 1. Sepsis. Admit the patient to medical telemetry as inpatient. Unclear source of infection but patient can be bacteremic as patient recently had dental extraction and graft procedure. Will continue empirically to treat with IV vancomycin and Zosyn follow-up blood culture. Will continue IV fluid. 2. Elevated lactic acid. Again lactic acid trended down from 8 to 1.7 after IV fluid. Continue to trend lactic acid with IV fluid and IV antibiotic as above. 3. Anemia, likely multifactorial with hemodilution, chronic kidney disease, inflammatory block. No evidence of bleeding at this point. Continue PPI b.i.d.. Transfuse 1 unit packed red blood cells. Monitor closely. Avoid aspirin/NSAIDs/heparin. Consult surgery for endoscopy. 4. F4 cirrhosis with history of esophageal varices, status post banding. Continue propranolol 10 mg b.i.d. for prophylaxis. 5. Alcohol use disorder. Last drink 3 days ago. No evidence of alcohol withdrawal at this point and denies a history of alcohol withdrawal. Monitor closely. 6. Acute kidney injury on CKD stage IV. Creatinine has improved to baseline. Continue IV fluid and monitor creatinine. Creatinine currently is down from 2.1mg/dL to 1.37mg/dL. 7. Diabetes mellitus, type 2, on insulin. Monitor glucose with usual Lantus dosing and subcu insulin. 8. Hypertension. Hold home blood pressure medication (losartan 100mg daily) due to low blood pressure on arrival to ER. 9. Hyperlipidemia. Continue atorvastatin. Plan: -consult surgery for endoscopy -transfuse 1 unit packed red blood cells -serial hematocrits -monitor for bleeding -propranolol 10mg BID variceal prophylaxis -PPI BID prophylaxis -IV fluids -continue vancomycin and Zosyn, likely stopped tomorrow if no sign of infection and cultures negative -follow cultures -trend lactic acid -monitor for alcohol withdrawal, no evidence to date DVT prophylaxis: SCDs. Avoid Lovenox given anemia. CODE STATUS full code. Disposition likely home in 2 to 3 days Quality VTE Deep Vein Thrombosis/Pulmonary Embolism Present on Admission: No PROFEE Residential Sales Executive Document charge(s): No Charge Codes Subsequent inpatient/observation care: [id number]
[2025-02-03] MEDS: VANCOMYCIN 1,500 MG/300 ML PIGGYBACK 200 MG IV (12:26)
--- NOTE | 2025-02-03 12:42 | PM.CN.IH.1 ---
History of Present Illness Consult details Date Patient Seen: 02/03/25 Time Patient Seen: 12:42 Chief complaint: gen weakness Narrative: 64-year-old man who was admitted Tuesday for syncope. He had had a dental procedure performed on . After he was admitted he mentioned that he had vomited a large volume of coffee-ground emesis on Tuesday. He only vomited one time. He has not had any hematochezia or melena. His initial hemoglobin was 9.6 and has drifted down to 6.9 today. He is receiving a unit of packed red blood cells now. He also has alcoholic cirrhosis and has had esophageal varices banded 2 years ago at [facility] by Dr. Joseph. He is not currently seeing anyone about his cirrhosis. He denies rectal bleeding or melena. Meds Home Medications and Allergies Home Medications ?Medication ?Instructions ?Recorded ?Confirmed ?Type aspirin 81 mg tablet,delayed 81 mg PO BID ##0 07/21/16 02/02/25 History release Held on 02/02/25. Instructions: Provider's Order atorvastatin 20 mg tablet (Lipitor) 20 mg PO HS ##0 07/21/16 02/02/25 History Held on 02/02/25. Instructions: Change in level of care losartan 100 mg tablet (Cozaar) 100 mg PO DAILY #0 tabs 01/01/21 02/02/25 History meloxicam 15 mg tablet 15 mg PO .prn 09/23/21 02/02/25 History Held on 02/02/25. Instructions: Provider's Order metformin 1,000 mg tablet 2,000 mg PO DAILY 09/23/21 02/02/25 History sildenafil 25 mg tablet 25 mg PO DAILY PRN sexual activity 10/26/21 02/02/25 Rx #30 tabs amoxicillin 500 mg capsule 500 mg PO 3XD 02/02/25 02/02/25 History insulin glargine 100 unit/mL (3 14 unit SUBCUT DAILY 02/02/25 02/02/25 History mL) subcutaneous pen (Lantus Solostar U-100 Insulin) Allergies Allergy/AdvReac Type Severity Reaction Status Date / Time No Known Drug Allergies Allergy Verified 02/01/25 19:51 Exam Vital Signs (past 8 hours): - 02/03/25 08:01 02/03/25 10:38 02/03/25 10:53 Temperature 98.0 F 98.9 F 98.8 F Pulse Rate 88 85 88 Respiratory Rate 19 18 18 Blood Pressure 127/74 127/74 110/65 Pulse Oximetry 98 Oxygen Flow Rate 0 Oxygen Delivery Method Room Air Oxygen Flow Rate 0 Const General: No acute distress Objective Labs 02/03/25 04:50 02/03/25 04:50 Labs: Laboratory Results - last 24 hr 02/02/25 02/02/25 02/02/25 15:10 16:39 17:23 WBC RBC Hgb 6.7 L* Hct 19.4 L* MCV MCH MCHC RDW Plt Count Neut % (Auto) Lymph % (Auto) [place] % (Auto) Eos % (Auto) Baso % (Auto) Neut # (Auto) Lymph # (Auto) [place] # (Auto) Eos # (Auto) Baso # (Auto) Sodium Potassium Chloride Carbon Dioxide BUN Creatinine Estimated GFR BUN/Creatinine Ratio Glucose POC Whole Bld Glucose 375 H D Lactate 1.7 Calcium Total Bilirubin AST ALT Alkaline Phosphatase Troponin I Total Protein Albumin Globulin Albumin/Globulin Ratio Blood Type O Positive Antibody Screen Negative Crossmatch See Detail 02/02/25 02/03/25 02/03/25 20:17 04:50 07:57 WBC 5.3 RBC 1.89 L Hgb 6.9 L* Hct 20.0 L* MCV 105.8 H MCH 36.8 H MCHC 34.8 RDW 14.1 Plt Count 76 L Neut % (Auto) 60.7 Lymph % (Auto) 25.1 [place] % (Auto) 12.9 Eos % (Auto) 0.9 L Baso % (Auto) 0.4 Neut # (Auto) 3200 Lymph # (Auto) 1300 [place] # (Auto) 700 Eos # (Auto) 0 Baso # (Auto) 0 Sodium 135 L Potassium 4.2 Chloride 108 H Carbon Dioxide 17 L BUN 36 H Creatinine 1.37 H Estimated GFR 58 L BUN/Creatinine Ratio 26.3 H Glucose 216 H POC Whole Bld Glucose 329 H 221 H D Lactate Calcium 8.4 Total Bilirubin 0.9 AST 158 H ALT 171 H Alkaline Phosphatase 77 Troponin I 0.014 Total Protein 5.5 L Albumin 3.1 L Globulin 2.4 Albumin/Globulin Ratio 1.3 Blood Type Antibody Screen Crossmatch [facility] Medical History Benign essential hypertension BPH loc w/o ur obs/LUTS Cholelithiases Cirrhosis, alcoholic CKD (chronic kidney disease) Diabetes Erectile dysfunction associated with type 2 diabetes mellitus Esophageal varices Family history of malignant neoplasm Family history of prostate cancer in father Myopia Obstruction of right ureteropelvic junction (UPJ) Ocular hypertension HAVEN (obstructive sleep apnea) Presbyopia Regular astigmatism Surgical History Hx of colonoscopy (02/10/21) Family History Mother Diabetes mellitus Father Diabetes mellitus Brother Diabetes mellitus Pancreatic cancer Sister Diabetes mellitus Pancreatic cancer Social History marital status: household members: spouse leisure activities: exercise Tobacco & Substance Use Smoking Status: Never smoker alcohol intake: current Diet and Exercise caffeine: Yes Assessment & Plan Assessment and plan (1) History of surgical procedure on mouth: Status: Acute Plan I suspect he swallowed a significant amount of blood during or after his dental procedure which caused him to vomit coffee-ground emesis on Tuesday and caused him to become hypovolemic and syncopal. From the trend line of his hemoglobin I suspect he has not been actively bleeding since admission. He may have melena in the next day or two if a significant volume of blood made it into his small bowel. I recommend transfusing him and monitoring for further drops in his hemoglobin. If he does have a further drop in his hemoglobin or any hemodynamic instability an esophagogastroduodenoscopy could be performed. Time-Based Coding :: [TOTAL MINUTES] spent with patient and on the chart (including review of chart, obtaining history, exam, reviewing outside data, placing orders, documenting exam and treatment plan, and counseling patient) on [DATE]. PROFEE Charge Codes Inpatient or Observation consultation: [id number]
[2025-02-03 14:32] LABS: Hemoglobin A1C% w Est Avg Glu 6.4 % (4.0-6.0)
[2025-02-03 18:53] LABS: Hematocrit 26.2 % (41-53); Hemoglobin 9.0 g/dL (13.5-17.5)
[2025-02-03] MEDS: PANTOPRAZOLE DR 40 MG TABLET PO (20:39)
[2025-02-04 04:00] VITALS: BP 136/76; PULSE 69; RESP 18; TEMP 36.6; O2SAT 90
[2025-02-04 05:12] LABS: Add Manual Diff / Slide Review NO; Hematocrit 24.3 % (41-53); Hemoglobin 8.4 g/dL (13.5-17.5); Lymphocytes Absolute Auto 1000 /uL (1100-4500); Mean Corpuscular HGB Conc 34.7 % (30-36); Mean Corpuscular Hemoglobin 35.4 PG (26-34); Mean Corpuscular Volume 101.9 fL (80-100); Platelet Count 76 X10^3/uL (150-400)
[2025-02-04 05:21] LABS: Blood Urea Nitrogen 22 mg/dL (9-20); Calcium 8.5 mg/dL (8.4-10.2); Carbon Dioxide 16 mmol/L (22-32); Chloride 109 mmol/L (98-107); Estimated Glomerular Filt Rate > 60 mL/min (>60); Glucose 266 mg/dL (70-99); HEMOLYSIS < 15 (0-50); Potassium 4.0 mmol/L (3.4-5.1); Sodium 132 mmol/L (137-145)
[2025-02-04] MEDS: PANTOPRAZOLE DR 40 MG TABLET PO (06:28)
--- NOTE | 2025-02-04 06:36 | PM.PN.IH.1 ---
Subjective Subjective Date Patient Seen: 02/04/25 Time Patient Seen: 06:36 Interval history: Denies further hematemesis Melana as anticipated Tolerating diet Wants to go home Exam Vital Signs (past 8 hours): - 02/03/25 23:00 02/04/25 04:00 Temperature 99.2 F 97.8 F Pulse Rate 67 69 Respiratory Rate 18 18 Blood Pressure 133/74 136/76 Pulse Oximetry 99 90 L Oxygen Flow Rate 0 0 Oxygen Delivery Method Room Air Oxygen Flow Rate 0 Const General: comfortable Orientation: alert and oriented x3 Resp Effort & Inspection: normal respiratory effort and able to speak in complete sentences Cardio Rate: regular rate GI Palpation: soft (NTND) Objective Labs 02/04/25 04:30 02/04/25 04:30 Labs: Laboratory Results - last 24 hr 02/02/25 02/03/25 02/03/25 17:23 04:50 07:57 WBC RBC Hgb Hct MCV MCH MCHC RDW Plt Count Neut % (Auto) Lymph % (Auto) [place] % (Auto) Eos % (Auto) Baso % (Auto) Neut # (Auto) Lymph # (Auto) [place] # (Auto) Eos # (Auto) Baso # (Auto) Sodium Potassium Chloride Carbon Dioxide BUN Creatinine Estimated GFR BUN/Creatinine Ratio Glucose POC Whole Bld Glucose 221 H D Hemoglobin A1c 6.4 H Calcium Blood Type O Positive Antibody Screen Negative Crossmatch See Detail 02/03/25 02/03/25 02/04/25 16:00 18:37 04:30 WBC 4.3 L RBC 2.39 L Hgb 9.0 L 8.4 L Hct 26.2 L 24.3 L MCV 101.9 H D MCH 35.4 H MCHC 34.7 RDW 17.6 H Plt Count 76 L Neut % (Auto) 60.3 Lymph % (Auto) 23.9 L [place] % (Auto) 11.4 Eos % (Auto) 3.7 Baso % (Auto) 0.7 Neut # (Auto) 2600 Lymph # (Auto) 1000 L [place] # (Auto) 500 Eos # (Auto) 200 Baso # (Auto) 0 Sodium 132 L Potassium 4.0 Chloride 109 H Carbon Dioxide 16 L BUN 22 H Creatinine 1.12 Estimated GFR > 60 BUN/Creatinine Ratio 19.6 Glucose 266 H POC Whole Bld Glucose 244 H Hemoglobin A1c Calcium 8.5 Blood Type Antibody Screen Crossmatch PFSH Medical History Benign essential hypertension BPH loc w/o ur obs/LUTS Cholelithiases Cirrhosis, alcoholic CKD (chronic kidney disease) Diabetes Erectile dysfunction associated with type 2 diabetes mellitus Esophageal varices Family history of malignant neoplasm Family history of prostate cancer in father Myopia Obstruction of right ureteropelvic junction (UPJ) Ocular hypertension HAVEN (obstructive sleep apnea) Presbyopia Regular astigmatism Surgical History Hx of colonoscopy (02/10/21) Family History (Reviewed 02/03/25 @ 11: by Dung Trimble MD) Mother Diabetes mellitus Father Diabetes mellitus Brother Diabetes mellitus Pancreatic cancer Sister Diabetes mellitus Pancreatic cancer Social History (Reviewed 02/03/25 @ 11: by Dung Trimble MD) marital status: household members: spouse leisure activities: exercise Smoking Status: Never smoker alcohol intake: current caffeine: Yes Assessment & Plan Assessment and plan (1) History of surgical procedure on mouth: Status: Acute (2) Hematemesis: Qualifiers: Nausea presence: unspecified Qualified Code(s): K92.0 - Hematemesis Status: Acute Plan Hgb up to 9 after transfusion Hemodynamically stable No further hematemesis Hold off on EGD for now Time-Based Coding :: [TOTAL MINUTES] spent with patient and on the chart (including review of chart, obtaining history, exam, reviewing outside data, placing orders, documenting exam and treatment plan, and counseling patient) on [DATE]. Quality VTE Deep Vein Thrombosis/Pulmonary Embolism Present on Admission: No IH PROFEE Supervisor Chemical Document charge(s): Yes Charge Codes Subsequent inpatient/observation care: [id number]
--- NOTE | 2025-02-04 07:56 | PM.PN.1 ---
Subjective Subjective Date Patient Seen: 02/04/25 Interval history: 64-year-old male with past medical history of insulin-dependent diabetes, CKD stage IV, hyperlipidemia, hypertension presents with near syncope. Per the patient report, the patient had a dental extraction with graft placement yesterday by his dental surgeon. The patient did have procedural sedation but is unsure it was intubated or not. The patient was given amoxicillin today to take after the procedure. The patient however denies any chills but might have some subjective fever. In addition the patient denies any increasing pain in his site where his tooth was extracted and has no significant discharge. The patient states that he has some fatigue and some mild shortness of breath but denies any coughing, nausea, vomiting, diarrhea, dysuria or significant abdominal pain. The patient does take metformin at home in addition to his insulin. In the emergency room, the patient was soft and his blood pressure and did require sepsis protocol bolus with improvement in the systolic blood pressure in the 1 teens. Lactic acid came back at 8.9 but after IV fluids 6.8. WBC 14 hemoglobin 9.6 sodium 130 creatinine 2.1 and glucose 299. UA was negative for UTI and chest x-ray was clear. No clear source of infection was identified hence CT chest abdomen and pelvic were done. Again no clear source of infection identified with these imaging. Empiric vancomycin and Zosyn started. Interim history: The patient's hematocrit returned at 19.8% this morning, and 21.8% on recheck. He denies hematemesis, nausea, vomiting, diarrhea, melena, hematochezia or abdominal pain, and has had no chest pain or shortness of breath. 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 He underwent esophageal variceal banding 2 years ago. He had a colonoscopy 3 years ago with history of colon polyps. He usually drinks 3 glasses of wine daily, stating these are large glasses, and has no history of alcohol withdrawal, and denies anxiety or tremor. He states he is very anxious overall because his father of sepsis in this hospital 10 years ago. Primary care provider is Dr. Chano Rand at the [facility] in [place]. Subjective: 02/03: The patient's hematocrit fell to 19% overnight, improved to 20% on repeat. He declined a blood transfusion yesterday though on further discussion is agreeable. He further clarifies history, stating that on 02/01 he experienced coffee-ground emesis. No further bleeding reported. No fevers, chills, cough or other infectious symptoms noted. Exam Vital Signs (past 8 hours): - 02/04/2504:00 02/04/2508:01 02/03/2510:38 Temperature 98.9 F 98.0 F 98.9 F Pulse Rate 83 88 85 Respiratory Rate 20 19 18 Blood Pressure 113/62 127/74 127/74 Pulse Oximetry 99 98 Oxygen Flow Rate 0 0 02/03/2510:53 Temperature 98.8 F Pulse Rate 88 Respiratory Rate 18 Blood Pressure 110/65 Pulse Oximetry Oxygen Flow Rate Oxygen Delivery Method Room Air Oxygen Flow Rate 0 Narrative Exam Narrative: GENERAL: This is a well-nourished, well-developed patient, in no apparent distress. HEAD: Atraumatic. Normocephalic. No temporal or scalp tenderness. EYES: Pupils equal round and reactive. Extraocular motions intact. No scleral icterus. No injection or drainage. ENT: Mucous membranes pink and moist. NECK: Trachea midline. No JVD, bruits or lymphadenopathy. Supple, nontender, no meningeal signs. CARDIOVASCULAR: Tachycardic rhythm without murmurs, gallops, or rubs. RESPIRATORY: Clear to auscultation. GASTROINTESTINAL: Abdomen soft, non-tender, nondistended. EXTREMITIES: No clubbing, cyanosis, or edema. NEUROLOGIC: Alert, oriented, speech fluent, full upper and lower motor strength, no focal deficits evident. DERMATOLOGIC: No rashes or skin lesions. Objective ECG Impression: Sinus tachycardia at 114bpm Nonspecific T wave abnormality Imaging Chest x-ray: Radiologist's impression: No acute cardiopulmonary abnormality is seen. Chest/abdomen/pelvis CT without contrast:: Radiologist's impression: 1. Stomach is distended. Suspected thickening at the distal esophagus. 2. No small bowel obstruction. No free fluid. No pneumoperitoneum. 3. No kidney stones. Gallstones. Labs 02/03/25 04:50 02/03/25 04:50 Labs: Laboratory Results - last 24 hr 02/02/25 02/02/25 02/02/25 11:29 15:10 16:39 WBC RBC Hgb 6.7 L* Hct 19.4 L* MCV MCH MCHC RDW Plt Count Neut % (Auto) Lymph % (Auto) [place] % (Auto) Eos % (Auto) Baso % (Auto) Neut # (Auto) Lymph # (Auto) [place] # (Auto) Eos # (Auto) Baso # (Auto) Sodium Potassium Chloride Carbon Dioxide BUN Creatinine Estimated GFR BUN/Creatinine Ratio Glucose POC Whole Bld Glucose 240 H 375 H D Lactate 1.7 Calcium Total Bilirubin AST ALT Alkaline Phosphatase Troponin I Total Protein Albumin Globulin Albumin/Globulin Ratio Blood Type Antibody Screen Crossmatch 02/02/25 02/02/25 02/03/25 17:23 20:17 04:50 WBC 5.3 RBC 1.89 L Hgb 6.9 L* Hct 20.0 L* MCV 105.8 H MCH 36.8 H MCHC 34.8 RDW 14.1 Plt Count 76 L Neut % (Auto) 60.7 Lymph % (Auto) 25.1 [place] % (Auto) 12.9 Eos % (Auto) 0.9 L Baso % (Auto) 0.4 Neut # (Auto) 3200 Lymph # (Auto) 1300 [place] # (Auto) 700 Eos # (Auto) 0 Baso # (Auto) 0 Sodium 135 L Potassium 4.2 Chloride 108 H Carbon Dioxide 17 L BUN 36 H Creatinine 1.37 H Estimated GFR 58 L BUN/Creatinine Ratio 26.3 H Glucose 216 H POC Whole Bld Glucose 329 H Lactate Calcium 8.4 Total Bilirubin 0.9 AST 158 H ALT 171 H Alkaline Phosphatase 77 Troponin I 0.014 Total Protein 5.5 L Albumin 3.1 L Globulin 2.4 Albumin/Globulin Ratio 1.3 Blood Type O Positive Antibody Screen Negative Crossmatch See Detail 02/03/25 07:57 WBC RBC Hgb Hct MCV MCH MCHC RDW Plt Count Neut % (Auto) Lymph % (Auto) [place] % (Auto) Eos % (Auto) Baso % (Auto) Neut # (Auto) Lymph # (Auto) [place] # (Auto) Eos # (Auto) Baso # (Auto) Sodium Potassium Chloride Carbon Dioxide BUN Creatinine Estimated GFR BUN/Creatinine Ratio Glucose POC Whole Bld Glucose 221 H D Lactate Calcium Total Bilirubin AST ALT Alkaline Phosphatase Troponin I Total Protein Albumin Globulin Albumin/Globulin Ratio Blood Type Antibody Screen Crossmatch [facility] Medical History Benign essential hypertension BPH loc w/o ur obs/LUTS Cholelithiases Cirrhosis, alcoholic CKD (chronic kidney disease) Diabetes Erectile dysfunction associated with type 2 diabetes mellitus Esophageal varices Family history of malignant neoplasm Family history of prostate cancer in father Myopia Obstruction of right ureteropelvic junction (UPJ) Ocular hypertension HAVEN (obstructive sleep apnea) Presbyopia Regular astigmatism Surgical History Hx of colonoscopy (02/10/21) Family History Mother Diabetes mellitus Father Diabetes mellitus Brother Diabetes mellitus Pancreatic cancer Sister Diabetes mellitus Pancreatic cancer Social History marital status: household members: spouse leisure activities: exercise Smoking Status: Never smoker alcohol intake: current caffeine: Yes Assessment & Plan Assessment & Plan narrative: 1. Sepsis. Admit the patient to medical telemetry as inpatient. Unclear source of infection but patient can be bacteremic as patient recently had dental extraction and graft procedure. Will continue empirically to treat with IV vancomycin and Zosyn follow-up blood culture. Will continue IV fluid. 2. Elevated lactic acid. Again lactic acid trended down from 8 to 1.7 after IV fluid. Continue to trend lactic acid with IV fluid and IV antibiotic as above. 3. Anemia, likely multifactorial with hemodilution, chronic kidney disease, inflammatory block. No evidence of bleeding at this point. Continue PPI b.i.d.. Transfuse 1 unit packed red blood cells. Monitor closely. Avoid aspirin/NSAIDs/heparin. Consult surgery for endoscopy. 4. F4 cirrhosis with history of esophageal varices, status post banding. Continue propranolol 10 mg b.i.d. for prophylaxis. 5. Alcohol use disorder. Last drink 3 days ago. No evidence of alcohol withdrawal at this point and denies a history of alcohol withdrawal. Monitor closely. 6. Acute kidney injury on CKD stage IV. Creatinine has improved to baseline. Continue IV fluid and monitor creatinine. Creatinine currently is down from 2.1mg/dL to 1.37mg/dL. 7. Diabetes mellitus, type 2, on insulin. Monitor glucose with usual Lantus dosing and subcu insulin. 8. Hypertension. Hold home blood pressure medication (losartan 100mg daily) due to low blood pressure on arrival to ER. 9. Hyperlipidemia. Continue atorvastatin. Plan: -consult surgery for endoscopy -transfuse 1 unit packed red blood cells -serial hematocrits -monitor for bleeding -propranolol 10mg BID variceal prophylaxis -PPI BID prophylaxis -IV fluids -continue vancomycin and Zosyn, likely stopped tomorrow if no sign of infection and cultures negative -follow cultures -trend lactic acid -monitor for alcohol withdrawal, no evidence to date DVT prophylaxis: SCDs. Avoid Lovenox given anemia. CODE STATUS full code. Disposition likely home in 2 to 3 days Exam Vital Signs (past 8 hours): - 02/04/25 04:00 Temperature 97.8 F Pulse Rate 69 Respiratory Rate 18 Blood Pressure 136/76 Pulse Oximetry 90 L Oxygen Flow Rate 0 Oxygen Delivery Method Room Air Oxygen Flow Rate 0 Objective Labs 02/04/25 04:30 02/04/25 04:30 Labs: Laboratory Results - last 24 hr 02/02/25 02/03/25 02/03/25 17:23 04:50 07:57 WBC RBC Hgb Hct MCV MCH MCHC RDW Plt Count Neut % (Auto) Lymph % (Auto) [place] % (Auto) Eos % (Auto) Baso % (Auto) Neut # (Auto) Lymph # (Auto) [place] # (Auto) Eos # (Auto) Baso # (Auto) Sodium Potassium Chloride Carbon Dioxide BUN Creatinine Estimated GFR BUN/Creatinine Ratio Glucose POC Whole Bld Glucose 221 H D Hemoglobin A1c 6.4 H Calcium Blood Type O Positive Antibody Screen Negative Crossmatch See Detail 02/03/25 02/03/25 02/04/25 16:00 18:37 04:30 WBC 4.3 L RBC 2.39 L Hgb 9.0 L 8.4 L Hct 26.2 L 24.3 L MCV 101.9 H D MCH 35.4 H MCHC 34.7 RDW 17.6 H Plt Count 76 L Neut % (Auto) 60.3 Lymph % (Auto) 23.9 L [place] % (Auto) 11.4 Eos % (Auto) 3.7 Baso % (Auto) 0.7 Neut # (Auto) 2600 Lymph # (Auto) 1000 L [place] # (Auto) 500 Eos # (Auto) 200 Baso # (Auto) 0 Sodium 132 L Potassium 4.0 Chloride 109 H Carbon Dioxide 16 L BUN 22 H Creatinine 1.12 Estimated GFR > 60 BUN/Creatinine Ratio 19.6 Glucose 266 H POC Whole Bld Glucose 244 H Hemoglobin A1c Calcium 8.5 Blood Type Antibody Screen Crossmatch PFSH Medical History Benign essential hypertension BPH loc w/o ur obs/LUTS Cholelithiases Cirrhosis, alcoholic CKD (chronic kidney disease) Diabetes Erectile dysfunction associated with type 2 diabetes mellitus Esophageal varices Family history of malignant neoplasm Family history of prostate cancer in father Myopia Obstruction of right ureteropelvic junction (UPJ) Ocular hypertension HAVEN (obstructive sleep apnea) Presbyopia Regular astigmatism Surgical History Hx of colonoscopy (02/10/21) Family History Mother Diabetes mellitus Father Diabetes mellitus Brother Diabetes mellitus Pancreatic cancer Sister Diabetes mellitus Pancreatic cancer Social History marital status: household members: spouse leisure activities: exercise Smoking Status: Never smoker alcohol intake: current caffeine: Yes Assessment & Plan Time-Based Coding :: [TOTAL MINUTES] spent with patient and on the chart (including review of chart, obtaining history, exam, reviewing outside data, placing orders, documenting exam and treatment plan, and counseling patient) on [DATE]. Quality VTE Deep Vein Thrombosis/Pulmonary Embolism Present on Admission: No
[2025-02-04] MEDS: INSULIN GLARGINE 100 UNIT/ML 3ML PEN 17 UNIT SUBCUT (09:36)
[2025-02-04] MEDS: PROPRANOLOL 10 MG TABLET PO (09:36)
[2025-02-04 12:00] VITALS: BP 180/93; PULSE 73; RESP 18; TEMP 36.4; O2SAT 98
[2025-02-04 12:48] LABS: Hematocrit 28.0 % (41-53); Hemoglobin 9.7 g/dL (13.5-17.5)
--- NOTE | 2025-02-04 14:25 | CM.DPNOTE ---
DCP note FILTER WORKER reviewed EMR per provider cleared to dc home today, wants OP GI f/u. per provider, pt anxious about managing [facility] F[facility] spoke with Marcelle from [facility], scheduled OP f/u phone call with pt's PCP tomorrow 02/05 at 3:30pm. PCP from there will send ref to GI specialist. FILTER WORKER updated pt on f/u appt. pt appreciative. declines other DCP/CM needs or concerns at this time, preference remains to dc home. P: dc home today with spouse support and close OP f/u. no further CM needs at this time. will continue to follow as needed LORETTA Yates
--- NOTE | 2025-02-04 14:37 | PC.NURSE ---
Day shift: Pt declined morning and noon insulin, discussed wanting a different glargine dose. Pt given education on ordered protocol and medication. Pt informed of plan of discharge. Pt asked clarifying questions, provider at bedside. Social work assisted with obtaining [facility] numbers for [facility]. Pt reports satisfaction with assistance. IVs discontinued. Telemetry removed. Pt ambulated to private vehicle with spouse and RN at approximately 1425.
--- NOTE | 2025-02-04 15:46 | P.DS_ITS ---
History of Present Illness History of Present Illness Date Patient Seen: 02/04/25 Chief complaint: gen weakness Discharge Providers Provider Date of admission: 02/02/25 00:34 Discharge Date: 02/04/25 Primary care physician: Mamadou Dumont MD Consults: 02/03/25 11:21 Consult to Physician Routine Comment: Consulting Provider: Junior Vences Reason for consultation: GI bleed Has provider been notified: Yes Discharge provider: Dre Forrester MD Summary Hospital Course Hospital Course: 1. Sepsis. Admit the patient to medical telemetry as inpatient. Unclear source of infection but patient can be bacteremic as patient recently had dental extraction and graft procedure. Will continue empirically to treat with IV vancomycin and Zosyn follow-up blood culture. Will continue IV fluid. 2. Elevated lactic acid. Again lactic acid trended down from 8 to 1.7 after IV fluid. Continue to trend lactic acid with IV fluid and IV antibiotic as above. 3. Anemia, likely multifactorial with hemodilution, chronic kidney disease, inflammatory block. No evidence of bleeding at this point. Continue PPI b.i.d.. Transfuse 1 unit packed red blood cells. Monitor closely. Avoid aspirin/NSAIDs/heparin. Consult surgery for endoscopy. 4. F4 cirrhosis with history of esophageal varices, status post banding. Continue propranolol 10 mg b.i.d. for prophylaxis. 5. Alcohol use disorder. Last drink 3 days ago. No evidence of alcohol withdrawal at this point and denies a history of alcohol withdrawal. Monitor closely. 6. Acute kidney injury on CKD stage IV. Creatinine has improved to baseline. Continue IV fluid and monitor creatinine. Creatinine currently is down from 2.1mg/dL to 1.37mg/dL. 7. Diabetes mellitus, type 2, on insulin. Monitor glucose with usual Lantus dosing and subcu insulin. 8. Hypertension. Hold home blood pressure medication (losartan 100mg daily) due to low blood pressure on arrival to ER. 9. Hyperlipidemia. Continue atorvastatin. Plan: -consult surgery for endoscopy -transfuse 1 unit packed red blood cells -serial hematocrits -monitor for bleeding -propranolol 10mg BID variceal prophylaxis -PPI BID prophylaxis -IV fluids -continue vancomycin and Zosyn, likely stopped tomorrow if no sign of infection and cultures negative -follow cultures -trend lactic acid -monitor for alcohol withdrawal, no evidence to date DVT prophylaxis: SCDs. Avoid Lovenox given anemia. CODE STATUS full code. Disposition likely home in 2 to 3 days Exam Vital Signs (past 8 hours): - 02/04/25 12:00 Temperature 97.5 F L Pulse Rate 73 Respiratory Rate 18 Blood Pressure 180/93 H Pulse Oximetry 98 Oxygen Flow Rate 0 Oxygen Delivery Method Room Air Oxygen Flow Rate 0 Objective Labs 02/04/25 12:41 02/04/25 04:30 Labs: Laboratory Results - last 24 hr 02/03/25 02/03/25 02/04/25 16:00 18:37 04:30 WBC 4.3 L RBC 2.39 L Hgb 9.0 L 8.4 L Hct 26.2 L 24.3 L MCV 101.9 H D MCH 35.4 H MCHC 34.7 RDW 17.6 H Plt Count 76 L Neut % (Auto) 60.3 Lymph % (Auto) 23.9 L [place] % (Auto) 11.4 Eos % (Auto) 3.7 Baso % (Auto) 0.7 Neut # (Auto) 2600 Lymph # (Auto) 1000 L [place] # (Auto) 500 Eos # (Auto) 200 Baso # (Auto) 0 Sodium 132 L Potassium 4.0 Chloride 109 H Carbon Dioxide 16 L BUN 22 H Creatinine 1.12 Estimated GFR > 60 BUN/Creatinine Ratio 19.6 Glucose 266 H POC Whole Bld Glucose 244 H Calcium 8.5 02/04/25 12:41 WBC RBC Hgb 9.7 L Hct 28.0 L MCV MCH MCHC RDW Plt Count Neut % (Auto) Lymph % (Auto) [place] % (Auto) Eos % (Auto) Baso % (Auto) Neut # (Auto) Lymph # (Auto) [place] # (Auto) Eos # (Auto) Baso # (Auto) Sodium Potassium Chloride Carbon Dioxide BUN Creatinine Estimated GFR BUN/Creatinine Ratio Glucose POC Whole Bld Glucose Calcium [facility] Medical History Benign essential hypertension BPH loc w/o ur obs/LUTS Cholelithiases Cirrhosis, alcoholic CKD (chronic kidney disease) Diabetes Erectile dysfunction associated with type 2 diabetes mellitus Esophageal varices Family history of malignant neoplasm Family history of prostate cancer in father Myopia Obstruction of right ureteropelvic junction (UPJ) Ocular hypertension HAVEN (obstructive sleep apnea) Presbyopia Regular astigmatism Surgical History Hx of colonoscopy (02/10/21) Family History Mother Diabetes mellitus Father Diabetes mellitus Brother Diabetes mellitus Pancreatic cancer Sister Diabetes mellitus Pancreatic cancer Social History marital status: household members: spouse leisure activities: exercise Smoking Status: Never smoker alcohol intake: current caffeine: Yes Discharge Plan Discharge Plan Patient Disposition: Home Provider Discharge Comment: Follow up with Dr. Dumont in one week. Discharge orders & Medications Prescriptions: Continued atorvastatin [Lipitor] 20 MG tablet 20 mg PO HS Qty: 0 aspirin 81 MG tablet,delayed release (DR/EC) 81 mg PO BID Qty: 0 losartan [Cozaar] 100 mg tablet 100 mg PO DAILY Qty: 0 sildenafil 25 mg tablet 25 mg PO DAILY PRN (Reason: sexual activity) Qty: 30 0RF Rx Instructions: administer 1-2 tablets 1 hours before activity insulin glargine [Lantus Solostar U-100 Insulin] 100 unit/mL (3 mL) insulin pen 14 unit SUBCUT DAILY metformin 1,000 mg tablet 2,000 mg PO DAILY meloxicam 15 mg tablet 15 mg PO .prn Discontinued amoxicillin 500 mg capsule 500 mg PO 3XD Follow up/Referrals: Mamadou Dumont MD [Primary Care Provider, Medical] Diet/Activity/Treatments Diet: Carb-consistent/Diabetic Skin/Wound/Dressing Care Report to your healthcare provider any signs of infection, such as:: chills, fever Visit Report/Discharge Packet Stand Alone Forms: Patient Portal/API, Stroke Signs & Symptoms Discharge Data Primary Care Provider: Mamadou Dumont Quality VTE Deep Vein Thrombosis/Pulmonary Embolism Present on Admission: No
== END 2025-02-04 14:25 | disposition home or self-care (01) | DRG 862 ==
LOC: ED 23:58 → AC 02-02 00:35 → ICU 02-02 01:02
PROVIDERS: Emergency Medicine; Family Medicine; Internal Medicine; Admitting Provider Internal Medicine; Emergency Provider Emergency Medicine; Family Provider Family Medicine; PCP Family Medicine; Referring Provider Emergency Medicine; Visit Provider Internal Medicine
DX: T81.44XA Sepsis following a procedure, initial encounter (principal); A41.9 Sepsis, unspecified organism; R65.20 Severe sepsis without septic shock; N17.9 Acute kidney failure, unspecified; F10.988 Alcohol use, unspecified with other alcohol-induced disorder; K92.0 Hematemesis; K92.1 Melena; N18.4 Chronic kidney disease, stage 4 (severe); E11.22 Type 2 diabetes mellitus with diabetic chronic kidney disease; I12.9 Hypertensive chronic kidney disease with stage 1 through stage 4 chronic kidney disease, or unspecified chronic kidney disease; D63.1 Anemia in chronic kidney disease; K70.30 Alcoholic cirrhosis of liver without ascites; E78.5 Hyperlipidemia, unspecified; Z79.4 Long term (current) use of insulin; Z79.84 Long term (current) use of oral hypoglycemic drugs; Z87.19 Personal history of other diseases of the digestive system; Z98.890 Other specified postprocedural states
CPT/HCPCS: 36415; 36430; 71045; 71250; 74176; 80048; 80053; 81001; 82550; 82962; 83036; 83605; 83690; 83880; 84145; 84484; 85014; 85018; 85025; 85610; 85730; 86850; 86900; 86901; 87040; 93005; 93010; 96365; 96366; 96367; 99284; 99285; P9016; J0696; J1815; J2543; J3375; J7030; J7050; J7120